=== PATIENT | male | born 1965 | race Caucasian/White ===

== ENCOUNTER → 2018-02-20 17:00 | Outpatient (CLI) | payer OTHER, SELFPAY ==
--- NOTE | 2018-02-20 17:07 | DI.MRI.S_ITS ---
PROCEDURE: MR LUMBAR SPINE WO CON INDICATIONS: LUMBAR SPINE RADICULOPATHY TECHNIQUE: Noncontrast sagittal T1 spin echo and T2 fast echo, coronal T2, sagittal STIR, axial T1 and T2 fast spin echo through the lumbar spine. COMPARISON: None. FINDINGS: Image quality: Excellent. Alignment and Curvature: No plain films are available for comparison, for numbering purposes. Thus, for the purposes of this examination, 5 lumbar type vertebral bodies will be presumed, as denoted on the montage panel. This should be confirmed and correlated with plain films, prior to any lumbar spinal intervention. There is mild diffuse leftward curvature of the midlumbar spine. There is mild grade 1 retrolisthesis of L1 on L2, L2 on L3, and L3 on L4. Bone Marrow: Marrow is of normal overall signal. No acute vertebral body compression fractures. There is moderate reactive signal within the endplates adjacent to the L1-L2 and L2-L3 intervertebral discs. Mild reactive signal within the endplates adjacent to the L3-L4 and L4-L5 intervertebral discs are Spinal Cord: Conus medullaris terminates at the L2 level. Visualized cord demonstrates normal signal and size. Paraspinous Soft Tissues: No paravertebral masses. T12-L1: Disc desiccation and diffuse disc bulge, with superimposed left paracentral protrusion. Bilateral facet hypertrophy. Mild canal stenosis. No foraminal stenosis. L1-L2: Disc desiccation and disc height loss, as well as a diffuse disc bulge. Bilateral facet hypertrophy. Mild canal stenosis. No foraminal stenosis. L2-L3: Disc desiccation and diffuse disc bulge. Bilateral facet hypertrophy. Epidural lipomatosis. Moderate to severe canal stenosis. Mild foraminal stenosis bilaterally. L3-L4: Disc desiccation and diffuse disc bulge with superimposed right paracentral disc extrusion, extending inferiorly within the right anterior epidural space. Bilateral facet and ligamentum flavum hypertrophy. Epidural lipomatosis. Severe canal stenosis. Moderate bilateral foraminal stenosis. Impingement upon the right L4 nerve root within the lateral recess. L4-L5: Disc height loss and desiccation, as well as diffuse disc bulge. Bilateral facet hypertrophy. Bilateral ligament hypertrophy. Epidural lipomatosis. There is severe canal stenosis. Moderate foraminal stenosis bilaterally. L5-S1: Disc desiccation and diffuse disc bulge. Bilateral facet hypertrophy. Mild canal stenosis. Severe left foraminal stenosis with mild flattening deformity of the left L5 nerve root within the neural foramen. Mild to moderate right foraminal stenosis. IMPRESSION: 1. Multilevel degenerative disc and facet disease, as well as epidural lipomatosis and ligamentum flavum hypertrophy. 2. Severe canal stenoses at L3-L4 and L4-L5. Moderate to severe canal stenosis at L2-L3. 3. Superimposed disc extrusion at L3-L4, causing right L4 nerve root impingement. 4. Severe left L5-S1 foraminal stenosis, associated with flattening deformity of the L5 nerve root within the neural foramen. Recommend correlation with clinical symptoms to ascertain relevance of this finding. 5. Plain films of the lumbar spine are recommended for numbering purposes, prior to any lumbar spinal intervention. Dictated by: Maruice Dixon M.D. on 02/21/2018 at 8:43 Approved by: Maurice Dixon M.D. on 02/21/2018 at 8:53
== END ==
PROVIDERS: PCP Family Medicine; Visit Provider Family Medicine
DX: M51.36 Other intervertebral disc degeneration, lumbar region (principal); M47.816 Spondylosis without myelopathy or radiculopathy, lumbar region; M48.061 Spinal stenosis, lumbar region without neurogenic claudication; M99.73 Connective tissue and disc stenosis of intervertebral foramina of lumbar region
CPT/HCPCS: 72148

== ENCOUNTER 2018-04-15 08:50 | Outpatient (CLI) | payer OTHER, SELFPAY ==
[2018-04-15] VITALS (9 sets, daily range): BP systolic 111–130; BP diastolic 65–89; PULSE 51–61; RESP 16–18; TEMP 35.9; O2SAT 96–100
--- NOTE | 2018-04-15 08:52 | DI.RAD.S_ITS ---
PROCEDURE: PAIN L INTERLAMINAR/CAUDAL INJ INDICATIONS: SPINAL STENOSIS FINDINGS: Fluoroscopic spot filming was performed to verify placement of spinal needles at the L4-L5 level(s), as labeled on the films. Appropriate location(s) of the needle tip(s) was confirmed by injection of iodinated contrast. IMPRESSION: Fluoroscopy for pain management. Dictated by: Dilip Agosto M.D. on 04/15/2018 at 16:28 Approved by: Dilip Agosto M.D. on 04/15/2018 at 16:28
--- NOTE | 2018-04-15 08:52 | DI.RAD.S_ITS ---
PROCEDURE: XR LUMBAR SPINE 2-3V INDICATIONS: Multilevel spinal stenosis left lower extremity radiculopath TECHNIQUE: 3 views of the lumbar spine were acquired. COMPARISON: None. FINDINGS: Bones: 5 [id number] vertebrae are present. Mild levoscoliosis. There is minimal retrolisthesis of L2 on L3 and L3 on L4. No vertebral body compression fractures. No suspicious bony lesions. There is degenerative disc disease, moderate to severe at L1-L2, moderate at L3-L4, and [id number] at L2-L3, L4-L5 and L5-S1. There is moderate facet arthropathy at L4-L5 and L5-S1. Soft tissues: Overlying bowel gas pattern is normal. No suspicious soft tissue calcifications. IMPRESSION: 1. Multilevel degenerative disc disease and facet arthropathy in lumbar spine. 2. Mild levoscoliosis. Dictated by: Dilip Agosto M.D. on 04/15/2018 at 14:08 Approved by: Dilip Agosto M.D. on 04/15/2018 at 14:12
--- NOTE | 2018-04-15 10:38 | P.PCN_ITS ---
Procedures Date/Time Date of procedure: 04/15/18 Time of procedure: 10:49 General Procedure description: PREOP DIAGNOSIS 1. CENTRAL AND FORAMINAL STENOSIS WITH LE SYMPTOMS, POST OP DIAGNOSIS 1. CENTRAL AND FORAMAINAL STENOSIS WITH LE SYMPTOMS, PROCEDURES 1.FLUOROSCOPICALLY GUIDED CONTRAST CONTROLLED TRANSFORAMINAL EPIDURAL STEROID INJECTION - Para Left L4/5 TLESI PHYSICIAN: Jenaro Sorto DO INDICATIONS: Adrian is referred by Dr. Macedo for treatment of Central and Foraminal Stenosis with left LE Symptoms FINDINGS Foraminal Nerve Root Compression secondary to disc disease and facet hypertrophy DESCRIPTION OF PROCEDURE Following denial of allergy and review of potential side effects and complications, including, but not necessarily limited to, infection, allergic reaction, local tissue breakdown, stroke, temporary or permanent nerve injury, paralysis, and possible , the patient indicated that the patient understood and agreed to proceed. An informed consent document was signed by the patient, witnessed by a nurse, and placed in the patient's chart. Additionally, other treatment options including medications, modalities, and physical therapy were reviewed with the patient. Per the patient request, IV conscious sedation was administered via 3mg of Versed to patient comfort. The patient's vital signs were monitored throughout the procedure by both the nurse and the physician without significant fluctuation. The patient remained conversant throughout the procedure. In the prone position following sterile prep and drape of the lumbar region, the L4/5 interlaminar space was identified fluoroscopically. The skin was anesthetized via a 25-gauge 1.5-inch needle with 1% lidocaine solution. At this point, a 25-gauge 3.5-inch spinal needle was atraumatically introduced and advanced under fluoroscopic guidance to the L4/5 epidural space. Loss of resistance technique was utilized to confirm placed. Depth was confirmed on lateral view. Following negative aspiration, injection of approximately 1.5 cc of Isovue 200 under live fluoroscopy in the AP view confirmed excellent flow along the nerve root, into the epidural space without vascular or intrathecal uptake observed Radiological data, including multiple fluoroscopic views of the lumbosacral spine, reveal a spinal needle at the right L5/S1 posterior neuroforamen. Subsequent views show flow of contrast material flowing superiorly and inferiorly along the nerve root confirming epidural flow. Subsequently, a test dose of 1.5 cc of 1% lidocaine solution was administered and patient was observed for two minutes for signs or symptoms of complications , including abdominal pain, shortness of breath, bilateral upper or lower extremity weakness, nausea and vomiting, prior to steroid injection. At this point, a total of 3 cc or 20 mg of dexamethasone and 80mg Depo Medrol was injected without incident. The patient was then transferred to the recovery area where they were observed for an appropriate time after the injection. The patient reported a VAS score of 7 prior to the procedure and a post-procedure VAS of 0. Total Fluoroscopy Time: 20.9 seconds Total Conscious Sedation Time: 24min POST OP INSTRUCTIONS The patient was provided a Pain Log to continue to record their response to the target-specific procedure prior to follow-up visit with their referring physician. Additionally, specific post-injection care instructions and a contact number to our office were provided if concerns arise regarding possible complications associated with the procedure are suspected. Jenaro Sorto DO Complications: none
[2018-04-15] MEDS: MIDAZOLAM 5 MG/5 ML VIAL IV (10:43)
[2018-04-15] MEDS: BUPIVACAINE 0.25% (PF) 30 ML VIAL INJ (10:55)
[2018-04-15] MEDS: methylPREDNISolone acetate 80 MG/ML VIAL INJ (10:55)
[2018-04-15] MEDS: IOPAMIDOL 15 ML VIAL 3 ML INJ (10:55)
[2018-04-15] MEDS: DEXAMETHASONE 10 MG/ML VIAL 20 MG INJ (10:55)
== END 2018-04-15 12:05 ==
PROVIDERS: PCP Family Medicine; Visit Provider Physical Medicine & Rehabilitation
DX: M48.061 Spinal stenosis, lumbar region without neurogenic claudication (principal); M47.26 Other spondylosis with radiculopathy, lumbar region; M51.36 Other intervertebral disc degeneration, lumbar region
CPT/HCPCS: 62323; 72100; 99152; J1040; J1100; J2250

== ENCOUNTER 2018-06-04 08:57 | Outpatient (CLI) | payer OTHER, SELFPAY ==
[2018-06-04] VITALS (10 sets, daily range): BP systolic 109–134; BP diastolic 76–97; PULSE 54–70; RESP 15–20; TEMP 35.8; O2SAT 96–100
--- NOTE | 2018-06-04 08:59 | DI.RAD.S_ITS ---
PROCEDURE: PAIN L/S TRANSFORAMINAL INJECT INDICATIONS: HNP with left lower extremity symptoms FINDINGS: Fluoroscopic spot filming was performed to verify placement of spinal needles at the left L4-L3-L4 level. Appropriate location(s) of the needle tip(s) was confirmed by injection of iodinated contrast. IMPRESSION: Successful needle tip localization of the left 4 L3-L4 transforaminal epidural steroid injection. Dictated by: Estrada Cline M.D. on 06/06/2018 at 12:10 Approved by: Estrada Cline M.D. on 06/06/2018 at 12:12
[2018-06-04] MEDS: MIDAZOLAM 5 MG/5 ML VIAL IV (10:10)
[2018-06-04] MEDS: BUPIVACAINE 0.25% (PF) VIAL 2 ML INJ (10:17)
[2018-06-04] MEDS: IOPAMIDOL 15 ML VIAL 3 ML INJ (10:17)
[2018-06-04] MEDS: DEXAMETHASONE 10 MG/ML VIAL 20 MG INJ (10:17)
[2018-06-04] MEDS: methylPREDNISolone acetate 80 MG/ML VIAL INJ (10:17)
--- NOTE | 2018-06-04 10:32 | P.PCN_ITS ---
Procedures Date/Time Date of procedure: 06/04/18 Time of procedure: 10:31 General Procedure description: PROVIDER: Jenaro Sorto DO Operative Note PREOP DIAGNOSIS 1. FORAMINAL STENOSIS WITH LE SYMPTOMS, POST OP DIAGNOSIS 1. FORAMINAL STENOSIS WITH LE SYMPTOMS, PROCEDURES 1. FLUOROSCOPICALLY GUIDED CONTRAST CONTROLLED TRANSFORAMINAL EPIDURAL STEROID INJECTION - LEFT L3/4 TFESI SURGEON: Jenaro Sorto, INDICATIONS Adrian is referred by Dr. Macedo for treatment of Foraminal Stenosis with left LE Symptoms FINDINGS Foraminal Nerve Root Compression secondary to disc disease and facet hypertrophy DESCRIPTION OF PROCEDURE Following denial of allergy and review of potential side effects and complications, including, but not necessarily limited to, infection, allergic reaction, local tissue breakdown, stroke, temporary or permanent nerve injury, paralysis, and possible , the patient indicated that the patient understood and agreed to proceed. An informed consent document was signed by the patient, witnessed by a nurse, and placed in the patient's chart. Additionally, other treatment options including medications, modalities, and physical therapy were reviewed with the patient. After review of previous anaesthesic history and IV conscious sedation the patient was deemed safe to proceed with todays procedure with IV conscious sedation as ASA class II designation. Safety time-out was performed to confirm patient ID, procedure to be performed and site of procedure. IV sedation was accomplished with a combination of 3mg was administered by the RN after DO order , titrated to patient comfort during the course of the procedure while the patient remained responsive to all verbal commands In the prone position following sterile prep and drape of the lumbar region, the left L3/4 posterior neuroforamen was identified fluoroscopically. The skin was anesthetized via a 25-gauge 1.5-inch needle with 1% lidocaine solution. At this point, a 25-gauge 3.5-inch spinal needle was atraumatically introduced and advanced under fluoroscopic guidance through the posterior left L3/4 neuroforamen to approximately the anterior aspect of the canal. Depth was confirmed on lateral view. Following negative aspiration, injection of approximately 1.5 cc of Isovue 200 under live fluoroscopy in the AP view confirmed excellent flow along the nerve root, into the epidural space without vascular or intrathecal uptake observed Radiological data, including multiple fluoroscopic views of the lumbosacral spine, reveal a spinal needle at the left L3/4 posterior neuroforamen. Subsequent views show flow of contrast material flowing superiorly and inferiorly along the nerve root confirming epidural flow. Subsequently, a test dose of 1.5 cc of 1% lidocaine solution was administered and patient was observed for two minutes for signs or symptoms of complications , including abdominal pain, shortness of breath, bilateral upper or lower extremity weakness, nausea and vomiting, prior to steroid injection. At this point, a total of 3 cc or 20 mg of dexamethasone and 80mg Depo medrol was injected without incident. The patient tolerated the procedure well without signs or symptoms of complications prior to transfer to the recovery area continued monitoring without incident. The patient was then transferred to the recovery area where they were observed for an appropriate time after the injection. The patient reported a VAS score of 7 prior to the procedure and a post-procedure VAS of 0. Total Fluoroscopy Time: 24.2 seconds Total Conscious Sedation Time: 24min POST OP INSTRUCTIONS The patient was provided a Pain Log to continue to record their response to the target-specific procedure prior to follow-up visit with their referring physician. Additionally, specific post-injection care instructions and a contact number to our office were provided if concerns arise regarding possible complications associated with the procedure are suspected. Jenaro Sorto, Complications: none
== END 2018-06-04 10:52 ==
LOC: RAD 08:58
PROVIDERS: PCP Family Medicine; Visit Provider Physical Medicine & Rehabilitation
DX: M51.26 Other intervertebral disc displacement, lumbar region (principal); M48.061 Spinal stenosis, lumbar region without neurogenic claudication
CPT/HCPCS: 64483; 99152; J1040; J1100; J2250

== ENCOUNTER 2018-07-29 08:09 | Outpatient (CLI) | payer OTHER, SELFPAY ==
[2018-07-29] VITALS (8 sets, daily range): BP systolic 113–137; BP diastolic 63–85; PULSE 58–67; RESP 14–18; TEMP 36.1; O2SAT 95–98
--- NOTE | 2018-07-29 08:10 | DI.RAD.S_ITS ---
PROCEDURE: PAIN L/S TRANSFORAMINAL INJECT INDICATIONS: HNP with left lower extremity radicular FINDINGS: Fluoroscopic spot filming was performed to verify placement of spinal needles at the left L4-5 neural foramen margin level, as labeled on the films. Appropriate location(s) of the needle tip(s) was confirmed by injection of iodinated contrast. IMPRESSION: Successful left L4-5 neural foraminal needle tip localization for epidural steroid injection. Dictated by: Estrada Cline M.D. on 07/29/2018 at 12:54 Approved by: Estrada Cline M.D. on 07/29/2018 at 12:55
--- NOTE | 2018-07-29 08:40 | P.PCN_ITS ---
Procedures Date/Time Date of procedure: 07/29/18 Time of procedure: 08:39 General Procedure description: PREOP DIAGNOSIS 1. FORMAINAL STENOSIS WITH LE SYMPTOMS POST OP DIAGNOSIS 1. FORMAINAL STENOSIS WITH LE SYMPTOMS PROCEDURES 1. FLUOROSCOPICALLY GUIDED CONTRAST CONTROLLED TRANSFORAMINAL EPIDURAL STEROID INJECTION - LEFT L4/5 PHYSICIAN: Jenaro Sorto DO INDICATIONS: Adrian is referred by Dr. Macedo for treatment of Foraminal Stenosis with Left LE Symptoms FINDINGS Foraminal Nerve Root Compression secondary to disc disease and facet hypertrophy DESCRIPTION OF PROCEDURE: Following denial of allergy and review of potential side effects and complications, including, but not necessarily limited to, infection, allergic reaction, local tissue breakdown, stroke, temporary or permanent nerve injury, paralysis, and possible , the patient indicated that the patient understood and agreed to proceed. An informed consent document was signed by the patient, witnessed by a nurse, and placed in the patient's chart. Additionally, other treatment options including medications, modalities, and physical therapy were reviewed with the patient. After review of previous anaesthesic history and IV conscious sedation the patient was deemed safe to proceed with todays procedure with IV conscious sedation as ASA class II designation. Safety time-out was performed to confirm patient ID, procedure to be performed and site of procedure. IV sedation was accomplished with a combination of 5mg of Versed administered by the RN after DO order, titrated to patient comfort during the course of the procedure while the patient remained responsive to all verbal commands In the prone position following sterile prep and drape of the lumbar region, the left L4/5 posterior neuroforamen was identified fluoroscopically. The skin was anesthetized via a 25-gauge 1.5-inch needle with 1% lidocaine solution. At this point, a 25-gauge 3.5-inch spinal needle was atraumatically introduced and advanced under fluoroscopic guidance through the posterior left L4/5 neuroforamen to approximately the anterior aspect of the canal. Depth was confirmed on lateral view. Following negative aspiration, injection of approximately 1.5 cc of Isovue 200 under live fluoroscopy in the AP view confirmed excellent flow along the nerve root, into the epidural space without vascular or intrathecal uptake observed Radiological data, including multiple fluoroscopic views of the lumbosacral spine, reveal a spinal needle at the left L4/5 posterior neuroforamen. Subsequent views show flow of contrast material flowing superiorly and inferiorly along the nerve root confirming epidural flow. Subsequently, a test dose of 1.5 cc of 1% lidocaine solution was administered and patient was observed for two minutes for signs or symptoms of complications , including abdominal pain, shortness of breath, bilateral upper or lower extremity weakness, nausea and vomiting, prior to steroid injection. At this point, a total of 3 cc or 20 mg of dexamethasone and 80mg Depo Medrol was injected without incident. The procedure tolerated the procedure well without signs or symptoms of complications prior to transfer to the recovery area continued monitoring without incident. The patient was then transferred to the recovery area where they were observed for an appropriate time after the injection. The patient reported a VAS score of 7 prior to the procedure and a post- procedure VAS of 0. Total Fluoroscopy Time: 20.9 seconds Total Conscious Sedation Time: 24min POST OP INSTRUCTIONS The patient was provided a Pain Log to continue to record their response to the target-specific procedure prior to follow-up visit with their referring physician. Additionally, specific post-injection care instructions and a contact number to our office were provided if concerns arise regarding possible complications associated with the procedure are suspected. Jenaro Sorto DO Complications: none
[2018-07-29] MEDS: MIDAZOLAM 5 MG/5 ML VIAL IV (08:55)
[2018-07-29] MEDS: BUPIVACAINE 0.25% (PF) VIAL 2 ML INJ (08:57)
[2018-07-29] MEDS: IOPAMIDOL 15 ML VIAL 3 ML INJ (08:57)
[2018-07-29] MEDS: methylPREDNISolone acetate 80 MG/ML VIAL INJ (08:58)
[2018-07-29] MEDS: DEXAMETHASONE 10 MG/ML VIAL 20 MG INJ (08:59)
--- NOTE | 2018-07-29 09:05 | PC.NURSE ---
procedure finished, pt was awake through it, able to get up off table and into W/C with minimal assist. VSS transporting pt to pre procedure area. handoff to Kelli TSANG
== END 2018-07-29 09:34 | disposition home or self-care (01) ==
LOC: RAD 08:09
PROVIDERS: PCP Family Medicine; Visit Provider Physical Medicine & Rehabilitation
DX: M48.061 Spinal stenosis, lumbar region without neurogenic claudication (principal); M51.16 Intervertebral disc disorders with radiculopathy, lumbar region
CPT/HCPCS: 64483; 99152; J1040; J1100; J2250

== ENCOUNTER 2018-10-28 08:52 | Outpatient (CLI) | payer OTHER, SELFPAY ==
[2018-10-28] VITALS (9 sets, daily range): BP systolic 125–142; BP diastolic 83–95; PULSE 60–72; RESP 16–18; TEMP 35.9; O2SAT 95–98
--- NOTE | 2018-10-28 08:55 | DI.RAD.S_ITS ---
PROCEDURE: PAIN L/S TRANSFORAMINAL INJECT INDICATIONS: INTERVERTEBRAL DISC DISPLACEMENT FINDINGS: Fluoroscopic spot filming was performed to verify placement of spinal needles at the L3-L4 level(s), as labeled on the films. Appropriate location(s) of the needle tip(s) was confirmed by injection of iodinated contrast. IMPRESSION: Fluoroscopy for pain management. Dictated by: Dilip Agosto M.D. on 10/28/2018 at 10:40 Approved by: Dilip Agosto M.D. on 10/28/2018 at 10:41
[2018-10-28] MEDS: MIDAZOLAM 5 MG/5 ML VIAL IV (09:40)
[2018-10-28] MEDS: methylPREDNISolone acetate 80 MG/ML VIAL INJ (09:45)
[2018-10-28] MEDS: BUPIVACAINE 0.25% (PF) VIAL 2 ML INJ (09:45)
[2018-10-28] MEDS: IOPAMIDOL 15 ML VIAL 3 ML INJ (09:45)
[2018-10-28] MEDS: DEXAMETHASONE 10 MG/ML VIAL 20 MG INJ (09:45)
--- NOTE | 2018-10-28 09:48 | PC.NURSE ---
ASSISTING PT OFF TABLE AND TRANSPORTING TO POST PROC AREA IN STABLE CONDITION
--- NOTE | 2018-10-28 09:55 | P.PCN_ITS ---
Procedures Date/Time Date of procedure: 10/28/18 Time of procedure: 09:53 General Procedure description: PROVIDER: Jenaro Sorto DO Operative Note PREOP DIAGNOSIS 1. FORAMINAL STENOSIS WITH LE SYMPTOMS, POST OP DIAGNOSIS 1. FORAMINAL STENOSIS WITH LE SYMPTOMS, PROCEDURES 1. FLUOROSCOPICALLY GUIDED CONTRAST CONTROLLED TRANSFORAMINAL EPIDURAL STEROID INJECTION - LEFT L3/4 TFESI SURGEON: Jenaro Sorto, INDICATIONS Adrian is referred by Dr. Macedo for treatment of Foraminal Stenosis with left LE Symptoms FINDINGS Foraminal Nerve Root Compression secondary to disc disease and facet hypertrophy DESCRIPTION OF PROCEDURE Following denial of allergy and review of potential side effects and complications, including, but not necessarily limited to, infection, allergic reaction, local tissue breakdown, stroke, temporary or permanent nerve injury, paralysis, and possible , the patient indicated that the patient understood and agreed to proceed. An informed consent document was signed by the patient, witnessed by a nurse, and placed in the patient's chart. Additionally, other treatment options including medications, modalities, and physical therapy were reviewed with the patient. After review of previous anaesthesic history and IV conscious sedation the patient was deemed safe to proceed with todays procedure with IV conscious sedation as ASA class II designation. Safety time-out was performed to confirm patient ID, procedure to be performed and site of procedure. IV sedation was accomplished with a combination of 3mg Versed was administered by the RN after DO order, titrated to patient comfort during the course of the procedure while the patient remained responsive to all verbal commands In the prone position following sterile prep and drape of the lumbar region, the left L3/4 posterior neuroforamen was identified fluoroscopically. The skin was anesthetized via a 25-gauge 1.5-inch needle with 1% lidocaine solution. At this point, a 25-gauge 3.5-inch spinal needle was atraumatically introduced and advanced under fluoroscopic guidance through the posterior left L3/4 neuroforamen to approximately the anterior aspect of the canal. Depth was confirmed on lateral view. Following negative aspiration, injection of approximately 1.5 cc of Isovue 200 under live fluoroscopy in the AP view confirmed excellent flow along the nerve root, into the epidural space without vascular or intrathecal uptake observed Radiological data, including multiple fluoroscopic views of the lumbosacral spine, reveal a spinal needle at the left L3/4 posterior neuroforamen. Subsequent views show flow of contrast material flowing superiorly and inferiorly along the nerve root confirming epidural flow. Subsequently, a test dose of 1.5 cc of 1% lidocaine solution was administered and patient was observed for two minutes for signs or symptoms of complications , including abdominal pain, shortness of breath, bilateral upper or lower extremity weakness, nausea and vomiting, prior to steroid injection. At this point, a total of 3cc or 20mg of dexamethasone and 80mg Depo medrol was injected without incident. The patient tolerated the procedure well without signs or symptoms of complications prior to transfer to the recovery area continued monitoring without incident. The patient was then transferred to the recovery area where they were observed for an appropriate time after the injection. The patient reported a VAS score of 7 prior to the procedure and a post-procedure VAS of 0. Total Fluoroscopy Time: 24.2 seconds Total Conscious Sedation Time: 24min POST OP INSTRUCTIONS The patient was provided a Pain Log to continue to record their response to the target-specific procedure prior to follow-up visit with their referring physician. Additionally, specific post-injection care instructions and a contact number to our office were provided if concerns arise regarding possible complications associated with the procedure are suspected. Jenaro Sorto, Complications: none
--- NOTE | 2018-10-28 10:00 | PC.NURSE ---
Pt returned from procedure room via wheelchair, able to move from w/c to chair without problems, resumed monitoring from Kelli TSANG.
--- NOTE | 2018-10-29 16:30 | PC.NURSE ---
FOLLOW UP CALL MADE. PT STATES HE FEELS FINE. STATES THERE IS JUST A LITTLE PAIN AT THIS TIME. DENIES QUESTIONS OR CONCERNS. I REMINDED HIM TO CONTINUE TO DOCUMENT PAIN ON GREEN SHEET AND THAT IF QUESTIONS CAME UP, HE HAS OUR NUMBER ON SAME SHEET. HE VERBALIZED UNDERSTANDING.
== END 2018-10-28 10:18 ==
LOC: RAD 08:53
PROVIDERS: PCP Family Medicine; Visit Provider Physical Medicine & Rehabilitation
DX: M48.061 Spinal stenosis, lumbar region without neurogenic claudication (principal); M51.16 Intervertebral disc disorders with radiculopathy, lumbar region
CPT/HCPCS: 64483; 99152; J1040; J1100; J2250

== ENCOUNTER 2019-09-10 06:58 | Outpatient (CLI) | payer OTHER, SELFPAY ==
[2019-09-10] VITALS (8 sets, daily range): BP systolic 105–131; BP diastolic 63–95; PULSE 61–71; RESP 14–16; TEMP 36.2; O2SAT 93–96
--- NOTE | 2019-09-10 07:00 | DI.RAD.S_ITS ---
PROCEDURE: PAIN L/S TRANSFORAMINAL INJECT INDICATIONS: SPINAL STENOSIS FINDINGS: Fluoroscopic spot filming was performed to verify placement of spinal needles at the L3-L4 level(s), as labeled on the films. Appropriate location(s) of the needle tip(s) was confirmed by injection of iodinated contrast. IMPRESSION: Fluoroscopy for pain management. Dictated by: Dilip Agosto M.D. on 09/10/2019 at 8:53 Approved by: Dilip Agosto M.D. on 09/10/2019 at 8:54
[2019-09-10] MEDS: MIDAZOLAM 5 MG/5 ML VIAL IV (08:07)
[2019-09-10] MEDS: fentaNYL 100 MCG/2 ML INJ 50 MCG IV (08:07)
[2019-09-10] MEDS: BUPIVACAINE 0.25% (PF) VIAL 2 ML INJ (08:19)
[2019-09-10] MEDS: IOPAMIDOL 15 ML VIAL 3 ML INJ (08:19)
[2019-09-10] MEDS: DEXAMETHASONE 10 MG/ML VIAL 20 MG INJ (08:19)
[2019-09-10] MEDS: BETAMETHASONE 30 MG/5 ML MDV 6 MG INJ (08:20)
--- NOTE | 2019-09-10 08:24 | P.PCN_ITS ---
Procedures Date/Time Date of procedure: 09/10/19 Time of procedure: 08:24 General Procedure description: PROVIDER: Jenaro Sorto DO Operative Note PREOP DIAGNOSIS 1. FORAMINAL STENOSIS WITH LE SYMPTOMS, POST OP DIAGNOSIS 1. FORAMINAL STENOSIS WITH LE SYMPTOMS, PROCEDURES 1. FLUOROSCOPICALLY GUIDED CONTRAST CONTROLLED TRANSFORAMINAL EPIDURAL STEROID INJECTION - LEFT L3/4 TFESI SURGEON: Jenaro Sorto, INDICATIONS Adrian is referred by Dr. Saldana for treatment of Foraminal Stenosis with left LE Symptoms FINDINGS Foraminal Nerve Root Compression secondary to disc disease and facet hypertrophy DESCRIPTION OF PROCEDURE Following review of allergy and review of potential side effects and complications, including, but not necessarily limited to, infection, allergic reaction, local tissue breakdown, stroke, temporary or permanent nerve injury, paralysis, and possible , the patient indicated that the patient understood and agreed to proceed. An informed consent document was signed by the patient, witnessed by a nurse, and placed in the patient's chart. Additionally, other treatment options including medications, modalities, and physical therapy were reviewed with the patient. After review of previous anaesthesic history and IV conscious sedation the patient was deemed safe to proceed with todays procedure with IV conscious sedation as ASA class II designation. Safety time-out was performed to confirm patient ID, procedure to be performed and site of procedure. IV sedation was accomplished with a combination of 5 of Versed and 50mcg of Fentanyl was administered by the RN after DO order, titrated to patient comfort during the course of the procedure while the patient remained responsive to all verbal commands In the prone position following sterile prep and drape of the lumbar region, the left L3/4 posterior neuroforamen was identified fluoroscopically. The skin was anesthetized via a 25-gauge 1.5-inch needle with 1% lidocaine solution. At this point, a 25-gauge 3.5-inch spinal needle was atraumatically introduced and advanced under fluoroscopic guidance through the posterior left L3/4 neuroforamen to approximately the anterior aspect of the canal. Depth was confirmed on lateral view. Following negative aspiration, injection of approximately 1.5 cc of Isovue 200 under live fluoroscopy in the AP view confirmed excellent flow along the nerve root, into the epidural space without v ascular or intrathecal uptake observed Radiological data, including multiple fluoroscopic views of the lumbosacral spine, reveal a spinal needle at the left L3/4 posterior neuroforamen. Subsequent views show flow of contrast material flowing superiorly and inferiorly along the nerve root confirming epidural flow. Subsequently, a test dose of 1.5 cc of 1% lidocaine solution was administered and patient was observed for two minutes for signs or symptoms of complications, including abdominal pain, shortness of breath, bilateral upper or lower extremity weakness, nausea and vomiting, prior to steroid injection. At this point, a total of 3cc or 20mg of dexamethasone and 6mg betamethasone was injected without incident. The patient tolerated the procedure well without signs or symptoms of complications prior to transfer to the recovery area continued monitoring without incident. The patient was then transferred to the recovery area where they were observed for an appropriate time after the injection. The patient reported a VAS score of 7 prior to the procedure and a post-procedure VAS of 0. Total Fluoroscopy Time: 24.2 seconds Total Conscious Sedation Time: 24min POST OP INSTRUCTIONS The patient was provided a Pain Log to continue to record their response to the target-specific procedure prior to follow-up visit with their referring physician. Additionally, specific post-injection care instructions and a contact number to our office were provided if concerns arise regarding possible complications associated with the procedure are suspected. Jenaro Sorto, Complications: none
--- NOTE | 2019-09-10 08:33 | PC.NURSE ---
ACCEPTED CARE OF PT IN POST PROC AREA IN STABLE CONDITION.
--- NOTE | 2019-09-10 09:10 | PC.NURSE ---
Post procedure transfer note: Time out at 0805. Patient medicated per providers orders. Tolerated procedure with mild discomfort. VSS, and O2 Sat WNL throughout. Able to sit up and transfer to / without dificulties. handoff report given to Kenrick Lam RN. patient transfered from / to recliner independently. Pain level 0/10
== END 2019-09-10 08:52 | disposition home or self-care (01) ==
LOC: RAD 06:58
PROVIDERS: PCP Student in an Organized Health Care Education/Training Program; Visit Provider Physical Medicine & Rehabilitation
DX: M48.062 Spinal stenosis, lumbar region with neurogenic claudication (principal); M51.16 Intervertebral disc disorders with radiculopathy, lumbar region
CPT/HCPCS: 64483; 99152; J0702; J1100; J2250; J3010

== ENCOUNTER → 2019-10-26 17:07 | Outpatient (CLI) | payer OTHER, SELFPAY ==
--- NOTE | 2019-10-26 17:09 | DI.MRI.S_ITS ---
PROCEDURE: MR LUMBAR SPINE WO CON INDICATIONS: increase lower back pain TECHNIQUE: Noncontrast sagittal T1 spin echo and T2 fast echo, sagittal STIR, axial T1 and T2 fast spin echo through the lumbar spine. In cases with scoliosis, additional coronal T2 fast spin echo may be performed. COMPARISON: [facility], CR, XR LUMBAR SPINE MIN 4V, 10/26/2019, 17:29. [facility], MR, MR LUMBAR SPINE WO CON, 02/20/2018, 17:11. FINDINGS: Image quality: Excellent. Alignment and Curvature: There is there is trace L1-L2, L2-L3 and L3 on L4 retrolisthesis. Bone Marrow: Marrow is of normal overall signal. No acute vertebral body compression fractures. Spinal Cord: Conus medullaris terminates at the L2 level. Visualized cord demonstrates normal signal and size. Paraspinous Soft Tissues: No paravertebral masses. T12-L1: Loss of disc signal. Minimal, diffuse disc bulge. Small central disc protrusion. Mild narrowing of the central canal. No neural foraminal narrowing. No neural compression. L1-L2: Loss of disc signal and height. Moderate, diffuse disc bulge. Mild bilateral facet hypertrophy. Moderate narrowing of the central canal. Mild bilateral neural foraminal narrowing. No neural compression. L2-L3: Loss of disc signal and height. Moderate, diffuse disc bulge Mild to moderate facet hypertrophy. Severe narrowing of the central canal with compression of the nerve roots of the cauda equina. Moderate bilateral neural foraminal narrowing. L3-L4: Loss of disc signal and height. Mild, diffuse disc bulge. Moderate bilateral facet hypertrophy. Large right central disc extrusion which extends inferiorly along the posterior margin of the L4 vertebral body.Severe narrowing of the central canal with compression of the nerve roots of the cauda equina. Moderate bilateral neural foraminal narrowing. L4-L5: Loss of disc signal. Moderate, diffuse disc bulge. Severe facet hypertrophy. Severe narrowing of the central canal with compression of the nerve roots of the cauda equina. Severe bilateral neural foraminal narrowing with compression of the exiting L4 nerve roots. L5-S1: Loss of disc signal. Mild, diffuse disc bulge. Moderate bilateral facet hypertrophy. Mild narrowing of the central canal. Severe bilateral neural foraminal narrowing with compression of the exiting L5 nerve roots. IMPRESSION: 1. Multilevel degenerative disc disease. 2. Multilevel facet arthropathy. 3. Severe L2-L3, L3-L4 and L4-L5 central canal narrowing with compression of the nerve roots of the cauda equina. 4. Severe bilateral L4-L5 and L5-S1 neural foraminal narrowing with compression of the exiting bilateral L4 nerve roots and exiting bilateral L5 nerve roots. 5. Large right central L3-L4 disc extrusion. Dictated by: Kathryn Goldstein MD, PhD on 10/27/2019 at 12:13 Approved by: Kathryn Goldstein MD, PhD on 10/27/2019 at 12:32
--- NOTE | 2019-10-26 17:10 | DI.RAD.S_ITS ---
PROCEDURE: XR LUMBAR SPINE MIN 4V INDICATIONS: Progressive low back pain left lower extremity symptoms TECHNIQUE: 5 views of the lumbar spine were acquired. COMPARISON: [facility], CR, XR LUMBAR SPINE 2-3V, 04/15/2018, 9:13. FINDINGS: Bones: No fracture or focal osseous destruction. Multilevel degenerative endplate sclerosis and spurring. Diffuse facet arthropathy. Grade 1 retrolisthesis L2 on L3 and L3 on L4. Levocurvature centered at L3. Soft tissues: Overlying bowel gas pattern is normal. No suspicious soft tissue calcifications. Oblique images: No pars defects. IMPRESSION: Diffuse lumbar spondylosis, with levocurvature grossly unchanged since 04/15/18 Facet arthropathy Dictated by: Kavin Fisher M.D. on 10/27/2019 at 14:13 Approved by: Kavin Fisher M.D. on 10/27/2019 at 14:15
== END ==
PROVIDERS: Family Provider Student in an Organized Health Care Education/Training Program; PCP Student in an Organized Health Care Education/Training Program; Visit Provider Physical Medicine & Rehabilitation
DX: M54.5 Low back pain (principal); M51.16 Intervertebral disc disorders with radiculopathy, lumbar region; M51.17 Intervertebral disc disorders with radiculopathy, lumbosacral region; M47.26 Other spondylosis with radiculopathy, lumbar region; M47.27 Other spondylosis with radiculopathy, lumbosacral region; M48.062 Spinal stenosis, lumbar region with neurogenic claudication; M48.07 Spinal stenosis, lumbosacral region
CPT/HCPCS: 72110; 72148

== ENCOUNTER → 2020-08-13 08:11 | Outpatient (CLI) | payer OTHER, SELFPAY ==
[2020-08-15 07:56] LABS: COVID19 Sendout Not Detected (Not Detect)
== END ==
PROVIDERS: Family Provider Student in an Organized Health Care Education/Training Program; PCP Student in an Organized Health Care Education/Training Program; Visit Provider Physician Assistant
DX: Z11.59 Encounter for screening for other viral diseases (principal)
CPT/HCPCS: 87635

== ENCOUNTER 2020-08-16 08:09 | Outpatient (CLI) | payer OTHER, SELFPAY ==
[2020-08-16] VITALS (11 sets, daily range): BP systolic 121–143; BP diastolic 67–89; PULSE 60–72; RESP 12–23; O2SAT 93–98
--- NOTE | 2020-08-16 08:12 | DI.RAD.S_ITS ---
PROCEDURE: PAIN L/SI FACET INJ/BLK 1STL INDICATIONS: SPONDYLOSIS COMPARISON: [facility], CR, XR LUMBAR SPINE MIN 4V, 10/26/2019, 17:29. FINDINGS: Fluoroscopic spot filming was performed to verify placement of spinal needles at the L2-3, L3-4, and L4-5 levels on the left, as labeled on the films. Appropriate location(s) of the needle tip(s) was confirmed by injection of iodinated contrast. IMPRESSION: Intraprocedural examination within normal limits. Dictated by: Aniket Duval M.D. on 08/16/2020 at 9:31 Approved by: Aniket Duval M.D. on 08/16/2020 at 9:32
[2020-08-16] MEDS: fentaNYL 100 MCG/2 ML INJ 50 MCG IV (08:49)
[2020-08-16] MEDS: MIDAZOLAM 5 MG/5 ML VIAL IV (08:57)
[2020-08-16] MEDS: BETAMETHASONE 30 MG/5 ML MDV 12 MG INJ (08:57)
[2020-08-16] MEDS: LIDOCAINE 1% 20 ML 10 ML INJ (08:58)
[2020-08-16] MEDS: BUPIVACAINE 0.5% (PF) VIAL 5 ML INJ (08:58)
[2020-08-16] MEDS: IOPAMIDOL 15 ML VIAL 3 ML INJ (08:58)
--- NOTE | 2020-08-16 09:05 | P.PCN_ITS ---
Date/Time/Diagnoses Date of procedure: 08/16/20 Time of procedure: 09:06 Pre-procedure diagnosis: 1. FACET ARTHROPATHY, 2. AXIAL LBP, 3. MULTILEVEL DDD Post-procedure diagnosis: same Procedure Notes Procedure: 1. FLUOROSCOPICALLY GUIDED CONTRAST CONTROLLED FACET JOINT INJECTIONS LEFT L2/3, L3/4, L4/5 Indications: Adrian is referred by Dr. Saldana for treatment of Axial LBP Physician: Jenaro Sorto Total Fluoroscopy time (seconds): 6 Total sedation minutes: 14 Complications: none Procedure in detail & Post-procedure care: FINDINGS Multilevel Facet Arthropathy with Clinically significant axial LBP DESCRIPTION OF PROCEDURE Fluoroscopically guided, contrast-controlled left L2/3, L3/4, L4/5 facet joint injections. Following review of allergy and review of potential side effects and complications, including, but not necessarily limited to, infection, allergic reaction, local tissue breakdown, stroke, temporary or permanent nerve injury, paralysis, and possible , the patient indicated that the patient understood and agreed to proceed. An informed consent document was signed by the patient, witnessed by a nurse, and placed in the patient's chart. Additionally, other treatment options including medications, modalities, and physical therapy were reviewed with the patient. After review of previous anaesthesic history and IV conscious sedation the patient was deemed safe to proceed with today?s procedure with IV conscious sedation as ASA class II designation. Safety time-out was performed to confirm patient ID, procedure to be performed and site of procedure. IV sedation was accomplished with a combination of 4mg of Versed and 50mcg of Fentanyl administered by the RN after DO order, titrated to patient comfort during the course of the procedure while the patient remained responsive to all verbal commands. In the prone position, following sterile prep and drape of the lumbar region, the posterior aspect of the left L2/3, L3/4, L4/5 facet joints were identified fluoroscopically. The skin was anesthetized via a 25-gauge 1.5-inch needle with 1% lidocaine solution into the corresponding facet joints. At this point, a 22- gauge 3.5-inch spinal needle was atraumatically introduced and advanced under fluoroscopic guidance into the corresponding facet joints. Following negative aspiration, injections of approximately 0.2cc of Isovue 200 confirmed interarticular placement without vascular uptake. Radiological data, including multiple fluoroscopic views of the lumbosacral spine, reveal a spinal needle at the left L2/3, L3/4, L4/5 facet joints. Subsequent views show flow of contrast material both superiorly and inferiorly within the joint space without vascular or intrathecal uptake. At this point, a total of 0.5cc including a mixture of 0.25cc Marcaine and 0.25cc betamethasone was injected without complication into each of the corresponding facet joints. The patient tolerated the procedure well without signs or symptoms of complications prior to transfer to the recovery area for further monitoring. The patient was then transferred to the recovery area where they were observed for an appropriate period of time after the injection. The patient reported a VAS score of 7 prior to the procedure and a post-procedure VAS of 0. POSTOP INSTRUCTIONS The patient was provided a Pain Log to continue to record their response to the target-specific procedure prior to follow-up visit with their referring physician. Additionally, specific post-injection care instructions and a contact number to our office were provided if concerns arise regarding possible complications associated with the procedure are suspected.
== END 2020-08-16 09:30 | disposition home or self-care (01) ==
LOC: RAD 08:11
PROVIDERS: Family Provider Student in an Organized Health Care Education/Training Program; PCP Student in an Organized Health Care Education/Training Program; Referring Provider Physical Medicine & Rehabilitation; Visit Provider Physical Medicine & Rehabilitation
DX: M47.816 Spondylosis without myelopathy or radiculopathy, lumbar region (principal); M54.5 Low back pain; M51.36 Other intervertebral disc degeneration, lumbar region
CPT/HCPCS: 64493; 64494; 64495; 99152; J0702; J2250; J3010

== ENCOUNTER → 2020-11-01 12:18 | Outpatient (CLI) | payer OTHER, SELFPAY ==
[2020-11-01 14:15] LABS: COVID19 -Nasal RAPID Negative (Negative)
== END ==
PROVIDERS: Family Provider Student in an Organized Health Care Education/Training Program; PCP Student in an Organized Health Care Education/Training Program; Visit Provider Physical Medicine & Rehabilitation
DX: Z20.822 Contact with and (suspected) exposure to COVID-19 (principal)
CPT/HCPCS: 87635; C9803

== ENCOUNTER 2020-11-03 10:03 | Outpatient (CLI) | payer OTHER, SELFPAY ==
[2020-11-03] VITALS (10 sets, daily range): BP systolic 113–138; BP diastolic 66–95; PULSE 63–71; RESP 12–24; O2SAT 93–97
--- NOTE | 2020-11-03 10:04 | DI.RAD.S_ITS ---
PROCEDURE: PAIN L/S TRANSFORAMINAL INJECT INDICATIONS: SPONDYLOSIS COMPARISON: [facility], , PAIN L/S TRANSFORAMINAL INJECT, 09/10/2019, 8:11. FINDINGS: Fluoroscopic spot filming was performed to verify placement of a spinal needle at the L3-L4 level, as labeled on the films. Appropriate location of the needle tip was confirmed by injection of iodinated contrast. IMPRESSION: Intraprocedural examination within normal limits. Dictated by: Aniket Duval M.D. on 11/03/2020 at 11:11 Approved by: Aniket Duval M.D. on 11/03/2020 at 11:12
[2020-11-03] MEDS: fentaNYL 100 MCG/2 ML INJ 50 MCG IV (10:47)
[2020-11-03] MEDS: MIDAZOLAM 5 MG/5 ML VIAL IV (10:47)
[2020-11-03] MEDS: BUPIVACAINE 0.25% (PF) VIAL 2 ML INJ (10:53)
[2020-11-03] MEDS: DEXAMETHASONE 10 MG/ML VIAL 20 MG INJ (10:53)
[2020-11-03] MEDS: IOPAMIDOL 15 ML VIAL 3 ML INJ (10:54)
[2020-11-03] MEDS: BETAMETHASONE 30 MG/5 ML MDV 6 MG INJ (10:54)
--- NOTE | 2020-11-03 11:03 | P.PCN_ITS ---
Date/Time/Diagnoses Date of procedure: 11/03/20 Time of procedure: 11:03 Pre-procedure diagnosis: 1. FORAMINAL STENOSIS WITH LE SYMPTOMS Post-procedure diagnosis: same Procedure Notes Procedure: 1. FLUOROSCOPICALLY GUIDED CONTRAST CONTROLLED TRANSFORAMINAL EPIDURAL STEROID INJECTION - LEFT L3/4 TFESI Indications: Adrian is referred by Dr. Saldana for treatment of Foraminal Stenosis with left LE Symptoms Physician: Jenaro Sorto Total Fluoroscopy time (seconds): 11 Total sedation minutes: 12 Complications: none Procedure in detail & Post-procedure care: FINDINGS Foraminal Nerve Root Compression secondary to disc disease and facet hypertrophy DESCRIPTION OF PROCEDURE Following review of allergy and review of potential side effects and complications, including, but not necessarily limited to, infection, allergic reaction, local tissue breakdown, stroke, temporary or permanent nerve injury, paralysis, and possible , the patient indicated that the patient understood and agreed to proceed. An informed consent document was signed by the patient, witnessed by a nurse, and placed in the patient's chart. Additionally, other treatment options including medications, modalities, and physical therapy were reviewed with the patient. After review of previous anaesthesic history and IV conscious sedation the patient was deemed safe to proceed with today?s procedure with IV conscious sedation as ASA class II designation. Safety time-out was performed to confirm patient ID, procedure to be performed and site of procedure. IV sedation was accomplished with a combination of 3mg of Versed and 50mcg of Fentanyl was administered by the RN after DO order, titrated to patient comfort during the course of the procedure while the patient remained responsive to all verbal c ommands In the prone position following sterile prep and drape of the lumbar region, the left L3/4 posterior neuroforamen was identified fluoroscopically. The skin was anesthetized via a 25-gauge 1.5-inch needle with 1% lidocaine solution. At this point, a 25-gauge 3.5-inch spinal needle was atraumatically introduced and advanced under fluoroscopic guidance through the posterior left L3/4 neuro foramen to approximately the anterior aspect of the canal. Depth was confirmed on lateral view. Following negative aspiration, injection of approximately 1.5 cc of Isovue 200 under live fluoroscopy in the AP view confirmed excellent flow along the nerve root, into the epidural space without vascular or intrathecal uptake observed Radiological data, including multiple fluoroscopic views of the lumbosacral spine, reveal a spinal needle at the left L3/4 posterior neuroforamen. Subsequent views show flow of contrast material flowing superiorly and inferiorly along the nerve root confirming epidural flow. Subsequently, a test dose of 1.5cc of 1% lidocaine solution was administered and patient was observed for two minutes for signs or symptoms of complications, including abdominal pain, shortness of breath, bilateral upper or lower extremity weakness, nausea and vomiting, prior to steroid injection. At this point, a total of 3cc or 20mg of dexamethasone and 6mg betamethasone was in jected without incident. The patient tolerated the procedure well without signs or symptoms of complications prior to transfer to the recovery area continued monitoring without incident. The patient was then transferred to the recovery area where they were observed for an appropriate time after the injection. The patient reported a VAS score of 7 prior to the procedure and a post-procedure VAS of 0. POST OP INSTRUCTIONS The patient was provided a Pain Log to continue to record their response to the target-specific procedure prior to follow-up visit with their referring physician. Additionally, specific post-injection care instructions and a contact number to our office were provided if concerns arise regarding possible complications associated with the procedure are suspected.
== END 2020-11-03 11:30 | disposition home or self-care (01) ==
PROVIDERS: Family Provider Student in an Organized Health Care Education/Training Program; PCP Student in an Organized Health Care Education/Training Program; Referring Provider Physical Medicine & Rehabilitation; Visit Provider Physical Medicine & Rehabilitation
DX: M48.061 Spinal stenosis, lumbar region without neurogenic claudication (principal); M51.16 Intervertebral disc disorders with radiculopathy, lumbar region
CPT/HCPCS: 64483; 99152; J0702; J1100; J2250; J3010

== ENCOUNTER → 2020-12-05 10:56 | Outpatient (CLI) | payer OTHER, SELFPAY ==
--- NOTE | 2020-12-05 10:57 | DI.RAD.S_ITS ---
PROCEDURE: XR LUMBAR SPINE MIN 4V INDICATIONS: back pain TECHNIQUE: 5 views of the lumbar spine were acquired, including bilateral oblique views. COMPARISON: [facility], CR, XR LUMBAR SPINE MIN 4V, 10/26/2019, 17:29. FINDINGS: Bones: No acute fracture identified. Multilevel degenerative endplate sclerosis and spurring. Diffuse facet arthropathy. Unchanged grade 1 retrolisthesis of L1 on L2, L2 on L3 and L3 on L4. Diffuse moderate narrowing of the lumbar disc spaces which is grossly unchanged. Levoscoliosis of the lumbar spine. Mild bilateral hip joint degeneration. Soft tissues: Overlying bowel gas pattern is normal. No suspicious soft tissue calcifications. Oblique images: No pars defects. IMPRESSION: Unchanged lumbar spondylosis and facet arthropathy since 10/26/19. Multilevel spondylolisthesis as above. Levoscoliosis as before Dictated by: Kavin Fisher M.D. on 12/05/2020 at 11:46 Approved by: Kavin Fisher M.D. on 12/05/2020 at 11:48
== END ==
PROVIDERS: Family Provider Student in an Organized Health Care Education/Training Program; PCP Student in an Organized Health Care Education/Training Program; Referring Provider Physical Medicine & Rehabilitation; Visit Provider Physical Medicine & Rehabilitation
DX: M48.061 Spinal stenosis, lumbar region without neurogenic claudication (principal); M48.062 Spinal stenosis, lumbar region with neurogenic claudication; M47.816 Spondylosis without myelopathy or radiculopathy, lumbar region; M43.16 Spondylolisthesis, lumbar region; M41.86 Other forms of scoliosis, lumbar region; M16.0 Bilateral primary osteoarthritis of hip
CPT/HCPCS: 72110

== ENCOUNTER → 2021-03-21 08:21 | Outpatient (CLI) | payer OTHER, SELFPAY ==
[2021-03-21 12:28] LABS: COVID19 -Nasal RAPID Negative (Negative)
== END ==
PROVIDERS: Family Provider Student in an Organized Health Care Education/Training Program; PCP Student in an Organized Health Care Education/Training Program; Visit Provider Physical Medicine & Rehabilitation
DX: Z20.822 Contact with and (suspected) exposure to COVID-19 (principal)
CPT/HCPCS: 87635; C9803

== ENCOUNTER 2021-03-23 10:07 | Outpatient (CLI) | payer OTHER, SELFPAY ==
[2021-03-23] VITALS (10 sets, daily range): BP systolic 122–149; BP diastolic 78–89; PULSE 66–78; RESP 12–21; TEMP 36.6; O2SAT 94–98
--- NOTE | 2021-03-23 10:08 | DI.RAD.S_ITS ---
PROCEDURE: PAIN L/S TRANSFORAMINAL INJECT INDICATIONS: SPONDYLOSIS COMPARISON: [facility], , PAIN L/S TRANSFORAMINAL INJECT, 11/03/2020, 10:51. FINDINGS: Fluoroscopic spot filming was performed to verify placement of a spinal needle at the L3-L4 level, as labeled on the films. Appropriate location of the needle tip was confirmed by injection of iodinated contrast. IMPRESSION: Intraprocedural examination within normal limits. Dictated by: Aniket Duval M.D. on 03/23/2021 at 10:26 Approved by: Aniket Duval M.D. on 03/23/2021 at 10:26
[2021-03-23] MEDS: fentaNYL 100 MCG/2 ML INJ 50 MCG IV (10:35)
[2021-03-23] MEDS: BUPIVACAINE 0.25% (PF) VIAL 2 ML INJ (10:40)
[2021-03-23] MEDS: IOPAMIDOL 15 ML VIAL 3 ML INJ (10:40)
[2021-03-23] MEDS: DEXAMETHASONE 10 MG/ML VIAL 20 MG INJ (10:40)
[2021-03-23] MEDS: methylPREDNISolone acetate 80 MG/ML VIAL INJ (10:41)
[2021-03-23] MEDS: MIDAZOLAM 5 MG/5 ML VIAL IV (10:42)
--- NOTE | 2021-03-23 10:49 | P.PCN_ITS ---
Date/Time/Diagnoses Date of procedure: 03/23/21 Time of procedure: 10:49 Pre-procedure diagnosis: 1. FORAMINAL STENOSIS WITH LE SYMPTOMS Post-procedure diagnosis: same Procedure Notes Procedure: 1. FLUOROSCOPICALLY GUIDED CONTRAST CONTROLLED TRANSFORAMINAL EPIDURAL STEROID INJECTION - LEFT L3/4 TFESI Indications: Adrian is referred by Dr. Saldana for treatment of Foraminal Stenosis with left LE Symptoms Physician: Jenaro Sorto Total Fluoroscopy time (seconds): 9 Total sedation minutes: 11 Complications: none Procedure in detail & Post-procedure care: FINDINGS Foraminal Nerve Root Compression secondary to disc disease and facet hypertrophy DESCRIPTION OF PROCEDURE Following review of allergy and review of potential side effects and complications, including, but not necessarily limited to, infection, allergic reaction, local tissue breakdown, stroke, temporary or permanent nerve injury, paralysis, and possible , the patient indicated that the patient understood and agreed to proceed. An informed consent document was signed by the patient, witnessed by a nurse, and placed in the patient's chart. Additionally, other treatment options including medications, modalities, and physical therapy were reviewed with the patient. After review of previous anaesthesic history and IV conscious sedation the patient was deemed safe to proceed with today?s procedure with IV conscious sedation as ASA class II designation. Safety time-out was performed to confirm patient ID, procedure to be performed and site of procedure. IV sedation was accomplished with a combination of 4mg of Versed and 50mcg of Fentanyl was administered by the RN after DO order, titrated to patient comfort during the course of the procedure while the patient remained responsive to all verbal co mmands In the prone position following sterile prep and drape of the lumbar region, the left L3/4 posterior neuroforamen was identified fluoroscopically. The skin was anesthetized via a 25-gauge 1.5-inch needle with 1% lidocaine solution. At this point, a 25-gauge 3.5-inch spinal needle was atraumatically introduced and advanced under fluoroscopic guidance through the posterior left L3/4 neurof oramen to approximately the anterior aspect of the canal. Depth was confirmed on lateral view. Following negative aspiration, injection of approximately 1.5 cc of Isovue 200 under live fluoroscopy in the AP view confirmed excellent flow along the nerve root, into the epidural space without vascular or intrathecal uptake observed Radiological data, including multiple fluoroscopic views of the lumbosacral spine, reveal a spinal needle at the left L3/4 posterior neuroforamen. Subsequent views show flow of contrast material flowing superiorly and inferiorly along the nerve root confirming epidural flow. Subsequently, a test dose of 1.5cc of 1% lidocaine solution was administered and patient was observed for two minutes for signs or symptoms of complications, including abdominal pain, shortness of breath, bilateral upper or lower extremity weakness, nausea and vomiting, prior to steroid injection. At this point, a total of 3cc or 20mg of dexamethasone and 80mg of Depo medrol was i njected without incident. The patient tolerated the procedure well without signs or symptoms of complications prior to transfer to the recovery area continued monitoring without incident. The patient was then transferred to the recovery area where they were observed for an appropriate time after the injection. The patient reported a VAS score of 7 prior to the procedure and a post-procedure VAS of 0. POST OP INSTRUCTIONS The patient was provided a Pain Log to continue to record their response to the target-specific procedure prior to follow-up visit with their referring physician. Additionally, specific post-injection care instructions and a contact number to our office were provided if concerns arise regarding possible complications associated with the procedure are suspected.
== END 2021-03-23 11:15 | disposition home or self-care (01) ==
PROVIDERS: Family Provider Student in an Organized Health Care Education/Training Program; PCP Student in an Organized Health Care Education/Training Program; Referring Provider Physical Medicine & Rehabilitation; Visit Provider Physical Medicine & Rehabilitation
DX: M48.061 Spinal stenosis, lumbar region without neurogenic claudication (principal); M51.16 Intervertebral disc disorders with radiculopathy, lumbar region
CPT/HCPCS: 64483; 99152; J1040; J1100; J2250; J3010

== ENCOUNTER → 2021-08-08 09:14 | Outpatient (CLI) | payer OTHER, SELFPAY ==
[2021-08-08 11:58] LABS: COVID19 -Nasal RAPID Negative (Negative)
== END ==
PROVIDERS: Family Provider Student in an Organized Health Care Education/Training Program; PCP Student in an Organized Health Care Education/Training Program; Referring Provider Physical Medicine & Rehabilitation; Visit Provider Physical Medicine & Rehabilitation
DX: Z20.822 Contact with and (suspected) exposure to COVID-19 (principal)
CPT/HCPCS: 87635; C9803

== ENCOUNTER 2021-08-10 14:55 | Outpatient (CLI) | payer OTHER, SELFPAY ==
[2021-08-10] VITALS (9 sets, daily range): BP systolic 137–173; BP diastolic 94–101; PULSE 74–86; RESP 13–22; TEMP 36.8; O2SAT 93–97
--- NOTE | 2021-08-10 14:56 | DI.RAD.S_ITS ---
PROCEDURE: PAIN L/S TRANSFORAMINAL INJECT INDICATIONS: SPONDYLOSIS COMPARISON: [facility], , PAIN L/S TRANSFORAMINAL INJECT, 03/23/2021, 10:41. FINDINGS: Fluoroscopic spot filming was performed to verify placement of spinal needles at the left L3-L4 foramen level(s), as labeled on the films. Appropriate location(s) of the needle tip(s) was confirmed by injection of iodinated contrast. IMPRESSION: Access needle appropriately localized to the left L3-L4 foramen for transforaminal epidural injection. Dictated by: Kathryn Goldstein MD, PhD on 08/10/2021 at 16:46 Approved by: Kathryn Goldstein MD, PhD on 08/10/2021 at 16:47
[2021-08-10] MEDS: MIDAZOLAM 5 MG/5 ML VIAL IV (15:33)
[2021-08-10] MEDS: fentaNYL 100 MCG/2 ML INJ 50 MCG IV (15:33)
[2021-08-10] MEDS: IOPAMIDOL 15 ML VIAL 3 ML INJ (15:36)
[2021-08-10] MEDS: BUPIVACAINE 0.25% (PF) VIAL 30 ML (15:36)
[2021-08-10] MEDS: BETAMETHASONE 30 MG/5 ML MDV 12 MG INJ (15:37)
[2021-08-10] MEDS: DEXAMETHASONE 10 MG/ML VIAL 20 MG INJ (15:37)
--- NOTE | 2021-08-10 15:49 | P.PCN_ITS ---
Date/Time/Diagnoses Date of procedure: 08/10/21 Time of procedure: 15:50 Pre-procedure diagnosis: 1. FORAMINAL STENOSIS WITH LE SYMPTOMS Post-procedure diagnosis: same Procedure Notes Procedure: 1. FLUOROSCOPICALLY GUIDED CONTRAST CONTROLLED TRANSFORAMINAL EPIDURAL STEROID INJECTION - LEFT L3/4 TFESI Indications: Adrian is referred by Dr. Saldana for treatment of Foraminal Stenosis with left LE Symptoms Physician: Jenaro Sorto Total Fluoroscopy time (seconds): 12 Total sedation minutes: 12 Complications: none Procedure in detail & Post-procedure care: FINDINGS Foraminal Nerve Root Compression secondary to disc disease and facet hypertrophy DESCRIPTION OF PROCEDURE Following review of allergy and review of potential side effects and complications, including, but not necessarily limited to, infection, allergic reaction, local tissue breakdown, stroke, temporary or permanent nerve injury, paralysis, and possible , the patient indicated that the patient understood and agreed to proceed. An informed consent document was signed by the patient, witnessed by a nurse, and placed in the patient's chart. Additionally, other treatment options including medications, modalities, and physical therapy were reviewed with the patient. After review of previous anaesthesic history and IV conscious sedation the patient was deemed safe to proceed with today?s procedure with IV conscious sedation as ASA class II designation. Safety time-out was performed to confirm patient ID, procedure to be performed and site of procedure. IV sedation was accomplished with a combination of 5mg of Versed and 50mcg of Fentanyl was administered by the RN after DO order, titrated to patient comfort during the course of the procedure while the patient remained responsive to all verbal com mands In the prone position following sterile prep and drape of the lumbar region, the left L3/4 posterior neuroforamen was identified fluoroscopically. The skin was anesthetized via a 25-gauge 1.5-inch needle with 1% lidocaine solution. At this point, a 22-gauge 5-inch spinal needle was atraumatically introduced and advanced under fluoroscopic guidance through the posterior left L3/4 neurofora men to approximately the anterior aspect of the canal. Depth was confirmed on lateral view. Following negative aspiration, injection of approximately 1.5cc of Isovue 200 under live fluoroscopy in the AP view confirmed excellent flow along the nerve root, into the epidural space without vascular or intrathecal uptake observed Radiological data, including multiple fluoroscopic views of the lumbosacral spine, reveal a spinal needle at the left L3/4 posterior neuroforamen. Subsequent views show flow of contrast material flowing superiorly and inferiorly along the nerve root confirming epidural flow. Subsequently, a test dose of 1.5cc of 1% lidocaine solution was administered and patient was observed for two minutes for signs or symptoms of complications, including abdominal pain, shortness of breath, bilateral upper or lower extremity weakness, nausea and vomiting, prior to steroid injection. At this point, a total of 4cc or 20mg of dexamethasone and 12mg betamethasone was inject ed without incident. The patient tolerated the procedure well without signs or symptoms of complications prior to transfer to the recovery area continued monitoring without incident. The patient was then transferred to the recovery area where they were observed for an appropriate time after the injection. The patient reported a VAS score of 7 prior to the procedure and a post-procedure VAS of 0. POST OP INSTRUCTIONS The patient was provided a Pain Log to continue to record their response to the target-specific procedure prior to follow-up visit with their referring physician. Additionally, specific post-injection care instructions and a contact number to our office were provided if concerns arise regarding possible complications associated with the procedure are suspected.
== END 2021-08-10 16:12 | disposition home or self-care (01) ==
LOC: RAD 14:55
PROVIDERS: Family Provider Student in an Organized Health Care Education/Training Program; PCP Student in an Organized Health Care Education/Training Program; Referring Provider Physical Medicine & Rehabilitation; Visit Provider Physical Medicine & Rehabilitation
DX: M48.061 Spinal stenosis, lumbar region without neurogenic claudication (principal); M51.16 Intervertebral disc disorders with radiculopathy, lumbar region
CPT/HCPCS: 64483; 99152; J0702; J1100; J2250; J3010

== ENCOUNTER → 2021-11-27 10:38 | Outpatient (CLI) | payer OTHER, SELFPAY ==
[2021-11-27 12:59] LABS: COVID19 -Nasal RAPID Negative (Negative)
== END ==
PROVIDERS: Family Provider Student in an Organized Health Care Education/Training Program; PCP Student in an Organized Health Care Education/Training Program; Visit Provider Physical Medicine & Rehabilitation
DX: Z20.822 Contact with and (suspected) exposure to COVID-19 (principal)
CPT/HCPCS: 87635; C9803

== ENCOUNTER 2021-11-28 08:16 | Outpatient (CLI) | payer OTHER, SELFPAY ==
[2021-11-28] VITALS (9 sets, daily range): BP systolic 128–152; BP diastolic 81–92; PULSE 65–71; RESP 14–21; TEMP 36.4; O2SAT 94–96
--- NOTE | 2021-11-28 08:18 | DI.RAD.S_ITS ---
PROCEDURE: PAIN L/S TRANSFORAMINAL INJECT INDICATIONS: SPONDYLOSIS COMPARISON: [facility], , PAIN L/S TRANSFORAMINAL INJECT, 08/10/2021, 15:36. FINDINGS: Fluoroscopic spot filming was performed to verify placement of a spinal needle at the L3-L4 level, as labeled on the films. Appropriate location of the needle tip was confirmed by injection of iodinated contrast. IMPRESSION: Intraprocedural examination within normal limits. Dictated by: Aniket Duval M.D. on 11/28/2021 at 8:15 Approved by: Aniket Duval M.D. on 11/28/2021 at 8:15
[2021-11-28] MEDS: fentaNYL 250 MCG/5 ML INJ 50 MCG IV (08:50)
[2021-11-28] MEDS: LIDOCAINE 2% INJ MDV 20 ML (08:53)
[2021-11-28] MEDS: IOPAMIDOL 15 ML VIAL 3 ML INJ (08:53)
[2021-11-28] MEDS: DEXAMETHASONE 10 MG/ML VIAL 20 MG INJ (08:54)
[2021-11-28] MEDS: BETAMETHASONE 30 MG/5 ML MDV 6 MG INJ (08:54)
[2021-11-28] MEDS: MIDAZOLAM 5 MG/5 ML VIAL IV (08:55)
--- NOTE | 2021-11-28 09:04 | P.PCN_ITS ---
Date/Time/Diagnoses Date of procedure: 11/28/21 Time of procedure: 09:04 Pre-procedure diagnosis: 1. FORAMINAL STENOSIS WITH LE SYMPTOMS Post-procedure diagnosis: same Procedure Notes Procedure: 1. FLUOROSCOPICALLY GUIDED CONTRAST CONTROLLED TRANSFORAMINAL EPIDURAL STEROID INJECTION - LEFT L3/4 TFESI Indications: Adrian is referred by Dr. Saldana for treatment of Foraminal Stenosis with left LE Symptoms Physician: Jenaro Sorto Total Fluoroscopy time (seconds): 8 Total sedation minutes: 10 Complications: none Procedure in detail & Post-procedure care: FINDINGS Foraminal Nerve Root Compression secondary to disc disease and facet hypertrophy DESCRIPTION OF PROCEDURE Following review of allergy and review of potential side effects and complications, including, but not necessarily limited to, infection, allergic reaction, local tissue breakdown, stroke, temporary or permanent nerve injury, paralysis, and possible , the patient indicated that the patient understood and agreed to proceed. An informed consent document was signed by the patient, witnessed by a nurse, and placed in the patient's chart. Additionally, other treatment options including medications, modalities, and physical therapy were reviewed with the patient. After review of previous anaesthesic history and IV conscious sedation the patient was deemed safe to proceed with today?s procedure with IV conscious sedation as ASA class II designation. Safety time-out was performed to confirm patient ID, procedure to be performed and site of procedure. IV sedation was accomplished with a combination of 5mg of Versed and 50mcg of Fentanyl was administered by the RN after DO order, titrated to patient comfort during the course of the procedure while the patient remained responsive to all verbal c ommands In the prone position following sterile prep and drape of the lumbar region, the left L3/4 posterior neuroforamen was identified fluoroscopically. The skin was anesthetized via a 25-gauge 1.5-inch needle with 1% lidocaine solution. At this point, a 25-gauge 3.5-inch spinal needle was atraumatically introduced and advanced under fluoroscopic guidance through the posterior left L3/4 neuro foramen to approximately the anterior aspect of the canal. Depth was confirmed on lateral view. Following negative aspiration, injection of approximately 1.5 cc of Isovue 200 under live fluoroscopy in the AP view confirmed excellent flow along the nerve root, into the epidural space without vascular or intrathecal uptake observed Radiological data, including multiple fluoroscopic views of the lumbosacral spine, reveal a spinal needle at the left L3/4 posterior neuroforamen. Subsequent views show flow of contrast material flowing superiorly and inferiorly along the nerve root confirming epidural flow. Subsequently, a test dose of 1.5cc of 1% lidocaine solution was administered and patient was observed for two minutes for signs or symptoms of complications, including abdominal pain, shortness of breath, bilateral upper or lower extremity weakness, nausea and vomiting, prior to steroid injection. At this point, a total of 3cc or 20mg of dexamethasone and 6mg betamethasone was in jected without incident. The patient tolerated the procedure well without signs or symptoms of complications prior to transfer to the recovery area continued monitoring without incident. The patient was then transferred to the recovery area where they were observed for an appropriate time after the injection. The patient reported a VAS score of 7 prior to the procedure and a post-procedure VAS of 0. POST OP INSTRUCTIONS The patient was provided a Pain Log to continue to record their response to the target-specific procedure prior to follow-up visit with their referring physician. Additionally, specific post-injection care instructions and a contact number to our office were provided if concerns arise regarding possible complications associated with the procedure are suspected.
== END 2021-11-28 09:27 | disposition home or self-care (01) ==
PROVIDERS: Family Provider Student in an Organized Health Care Education/Training Program; PCP Student in an Organized Health Care Education/Training Program; Referring Provider Physical Medicine & Rehabilitation; Visit Provider Physical Medicine & Rehabilitation
DX: M48.061 Spinal stenosis, lumbar region without neurogenic claudication (principal); M51.16 Intervertebral disc disorders with radiculopathy, lumbar region
CPT/HCPCS: 64483; 99152; J0702; J1100; J2250; J3010

== ENCOUNTER → 2022-04-16 10:18 | Outpatient (CLI) | payer OTHER, SELFPAY ==
[2022-04-16 11:00] LABS: COVID19 -Nasal RAPID Negative (Negative)
== END ==
PROVIDERS: Family Provider Student in an Organized Health Care Education/Training Program; PCP Student in an Organized Health Care Education/Training Program; Visit Provider Physical Medicine & Rehabilitation
DX: Z20.822 Contact with and (suspected) exposure to COVID-19 (principal)
CPT/HCPCS: 87635; C9803

== ENCOUNTER 2022-04-17 08:11 | Outpatient (CLI) | payer OTHER, SELFPAY ==
[2022-04-17] VITALS (8 sets, daily range): BP systolic 129–172; BP diastolic 85–106; PULSE 61–96; RESP 14–21; TEMP 36.4; O2SAT 94–98
--- NOTE | 2022-04-17 08:12 | DI.RAD.S_ITS ---
PROCEDURE: PAIN L/S TRANSFORAMINAL INJECT INDICATIONS: SPONDYLOSIS COMPARISON: [facility], , PAIN L/S TRANSFORAMINAL INJECT, 11/28/2021, 9:53. FINDINGS: Fluoroscopic spot filming was performed to verify placement of a spinal needle at the L3-L4 level, as labeled on the films. Appropriate location of the needle tip was confirmed by injection of iodinated contrast. IMPRESSION: Intraprocedural examination within normal limits. Dictated by: Aniket Duval M.D. on 04/17/2022 at 9:22 Approved by: Aniket Duval M.D. on 04/17/2022 at 9:22
[2022-04-17] MEDS: MIDAZOLAM 2 MG/2 ML VIAL 4 MG IV (09:10)
[2022-04-17] MEDS: IOPAMIDOL 15 ML VIAL 3 ML INJ (09:11)
[2022-04-17] MEDS: BUPIVACAINE 0.25% (PF) VIAL 30 ML INJ (09:12)
[2022-04-17] MEDS: BETAMETHASONE 30 MG/5 ML MDV 6 MG INJ (09:13)
[2022-04-17] MEDS: DEXAMETHASONE 10 MG/ML VIAL 20 MG INJ (09:14)
--- NOTE | 2022-04-17 09:22 | P.PCN_ITS ---
Date/Time/Diagnoses Date of procedure: 04/17/22 Time of procedure: 09:22 Pre-procedure diagnosis: 1. FORAMINAL STENOSIS WITH LE SYMPTOMS Post-procedure diagnosis: same Procedure Notes Procedure: 1. FLUOROSCOPICALLY GUIDED CONTRAST CONTROLLED TRANSFORAMINAL EPIDURAL STEROID INJECTION - LEFT L3/4 TFESI Indications: Adrian is referred by Dr. Cobian for treatment of Foraminal Stenosis with left LE Symptoms Physician: Jenaro Sorto Total Fluoroscopy time (seconds): 8 Total sedation minutes: 12 Complications: none Procedure in detail & Post-procedure care: FINDINGS Foraminal Nerve Root Compression secondary to disc disease and facet hypertrophy DESCRIPTION OF PROCEDURE Following review of allergy and review of potential side effects and complications, including, but not necessarily limited to, infection, allergic reaction, local tissue breakdown, stroke, temporary or permanent nerve injury, paralysis, and possible , the patient indicated that the patient understood and agreed to proceed. An informed consent document was signed by the patient, witnessed by a nurse, and placed in the patient's chart. Additionally, other treatment options including medications, modalities, and physical therapy were reviewed with the patient. After review of previous anaesthesic history and IV conscious sedation the patient was deemed safe to proceed with today?s procedure with IV conscious sedation as ASA class II designation. Safety time-out was performed to confirm patient ID, procedure to be performed and site of procedure. IV sedation was accomplished with a combination of 4mg of Versed was administered by the RN after DO order, titrated to patient comfort during the course of the procedure while the patient remained responsive to all verbal commands In the prone position following sterile prep and drape of the lumbar region, the left L3/4 posterior neuroforamen was identified fluoroscopically. The skin was anesthetized via a 25-gauge 1.5-inch needle with 1% lidocaine solution. At this point, a 25-gauge 3.5-inch spinal needle was atraumatically introduced and advanced under fluoroscopic guidance through the posterior left L3/4 neuroforamen to approximately the anterior aspect of the canal. Depth was confirmed on lateral view. Following negative aspiration, injection of approximately 1.5 cc of Isovue 200 under live fluoroscopy in the AP view confirm ed excellent flow along the nerve root, into the epidural space without vascular or intrathecal uptake observed Radiological data, including multiple fluoroscopic views of the lumbosacral spine, reveal a spinal needle at the left L3/4 posterior neuroforamen. Subsequent views show flow of contrast material flowing superiorly and inferiorly along the nerve root confirming epidural flow. Subsequently, a test dose of 1.5cc of 1% lidocaine solution was administered and patient was observed for two minutes for signs or symptoms of complications, including abdominal pain, shortness of breath, bilateral upper or lower extremity weakness, nausea and vomiting, prior to steroid injection. At this point, a total of 3cc or 20mg of dexamethasone and 6mg betamethasone was injected without incident. The patient tolerated the procedure well without signs or symptoms of complications prior to transfer to the recovery area continued monitoring without incident. The patient was then transferred to the recovery area where they were observed for an appropriate time after the injection. The patient reported a VAS score of 7 prior to the procedure and a post-procedure VAS of 0. POST OP INSTRUCTIONS The patient was provided a Pain Log to continue to record their response to the target-specific procedure prior to follow-up visit with their referring physician. Additionally, specific post-injection care instructions and a contact number to our office were provided if concerns arise regarding possible complications associated with the procedure are suspected.
== END 2022-04-17 09:40 | disposition home or self-care (01) ==
LOC: RAD 08:12
PROVIDERS: Family Provider Student in an Organized Health Care Education/Training Program; PCP Family Medicine; Referring Provider Physical Medicine & Rehabilitation; Visit Provider Physical Medicine & Rehabilitation
DX: M48.061 Spinal stenosis, lumbar region without neurogenic claudication (principal); M51.16 Intervertebral disc disorders with radiculopathy, lumbar region
CPT/HCPCS: 64483; 99152; J0702; J1100; J2250

== ENCOUNTER → 2022-06-07 14:38 | Outpatient (CLI) | payer OTHER, SELFPAY ==
--- NOTE | 2022-06-07 14:39 | DI.US.S_ITS ---
PROCEDURE: US ABDOMEN LIMITED INDICATIONS: Rule out gallstones TECHNIQUE: Real-time focused scanning was performed of the abdomen, with image documentation. COMPARISON: None. FINDINGS: The liver demonstrates mildly enlarged size. The liver demonstrates generalized mildly increased echogenicity. This decreases ultrasound sensitivity for detection of hepatic masses. The main portal vein demonstrates normal size and demonstrates normal appearing, hepatopetal flow. No findings of gallstones or sludge are seen. The gallbladder wall is not thickened, measuring 3 mm or less. No specific pericholecystic fluid is seen. The sonographic Roberts sign is negative. There is no biliary dilatation, the common bile duct measures 5 mm. No significant pancreatic abnormality is seen on these images. The IVC is patent. No free fluid can be seen. IMPRESSION: No gallstones are seen. The gallbladder demonstrates a normal sonographic appearance. No biliary dilatation is seen. Mildly enlarged, mildly fatty liver. Dictated by: Aniket Duval M.D. on 06/07/2022 at 14:58 Approved by: Aniket Duval M.D. on 06/07/2022 at 14:59
== END ==
PROVIDERS: Family Provider Student in an Organized Health Care Education/Training Program; PCP Family Medicine; Referring Provider Surgery; Visit Provider Surgery
DX: R10.9 Unspecified abdominal pain (principal); K76.0 Fatty (change of) liver, not elsewhere classified
CPT/HCPCS: 76705

== ENCOUNTER 2022-06-12 11:08 | Day surgery (SDC) | payer OTHER, SELFPAY ==
--- NOTE | 2022-06-12 | PATH_ITS ---
[facility] Accession Number: [id number] . 01 Material submitted: . duodenum - DUODENUM BIOPSY . 01 Diagnosis: Duodenum, Biopsy: Duodenal mucosa with active inflammation and reactive epithelial changes, including gastric surface foveolar metaplasia, consistent with peptic duodenitis. Negative for intraepithelial lymphocytosis. Negative for dysplasia and malignancy. MRV 06/14/2022 1410 Local . 01 Electronically signed: . Natasha Castro MD, Pathologist NPI- [id number] . 01 Gross description: . DUODENUM BIOPSY: Received in formalin are 2 fragment(s) of whitlock, soft tissue measuring 0.3 x 0.2 x 0.1 cm to 0.2 x 0.1 x 0.1 cm submitted entirely in 1 cassette(s) /CPE 06/13/2022 0702 Local . 01 Pathologist provided ICD-10: K21.9 . 01 CPT . 103255 Specimen Comment: A courtesy copy of this report has been sent to [phone] Performed at: 01 [facility] [address] [place] [address] [id number] MD Kurt Rowland MD Phone: [phone]
[2022-06-12 11:27] VITALS: BP 155/89; PULSE 60; RESP 16; TEMP 36.7; O2SAT 97; BMI 32.3
[2022-06-12 12:17] VITALS: BMI 32.3
--- NOTE | 2022-06-12 12:50 | PM.PREOP ---
Pre-operative Note Interval Note History & Physical reviewed/Exam performed by Physician: Yes Changes to H&P: No
[2022-06-12] MEDS: LIDOCAINE 4% SOLN 50 ML 20 ML TOP (12:56)
--- NOTE | 2022-06-12 13:06 | PM.OP.EGD ---
Operative Date/Time/Diagnoses Date of procedure: 06/12/22 Time of procedure: 13:06 Pre-op diagnosis: Gastroesophageal reflux Post-op diagnosis: same Procedure & Clinicians Study performed: Esophagoduodenoscopy Same procedure as scheduled: Yes Indications: Abdominal pain, gastroesophageal reflux Surgeon: Pato Macias Procedure Notes Procedure in detail: Patient placed in left lateral decubitus position. Time out was performed. Procedural sedation was administered with Versed and Fentanyl. A bite block was placed. the scope was inserted into the mouth and advanced through the esophagus and into the stomach which was notable for moderate gastritis no ulcer or active bleeding. The pylorus was intubated and the duodenum was notable for patchy duodenitis to at least the 2nd portion of the duodenum. Biopsy of the duodenum was performed with forceps.. The scope was retroflexed within the stomach and there was a small hiatal hernia. The scope was withdrawn into the esophagus the Z line was seen at 40 cm from the incisions. There was no Del Cid's esophagitis or masses or strictures. Stomach was desufflated and scope removed. Patient tolerated procedure well. Specimen(s): other (Duodenal) Complications: none Impression: Gastritis and duodenitis Post-procedure Plan for aftercare: Will notify with results of biopsy. Continue pantoprazole as written Disposition: same day surgery
[2022-06-12] MEDS: fentaNYL 100 MCG/2 ML INJ IV (13:07)
[2022-06-12] MEDS: MIDAZOLAM 5 MG/5 ML VIAL IV (13:08)
[2022-06-12 13:13] VITALS: BP 159/97; PULSE 66; RESP 20; TEMP 36.8; O2SAT 94
[2022-06-12 13:18] VITALS: BP 152/85; PULSE 68; RESP 17; O2SAT 93
[2022-06-12 13:23] VITALS: BP 153/90; PULSE 72; RESP 20; O2SAT 92
[2022-06-12 13:28] VITALS: BP 148/97; PULSE 64; RESP 18; TEMP 36.9; O2SAT 96
[2022-06-12 13:35] VITALS: BP 138/83; PULSE 65; RESP 16; TEMP 36.8; O2SAT 93
== END 2022-06-12 13:40 | disposition home or self-care (01) ==
PROVIDERS: Family Provider Student in an Organized Health Care Education/Training Program; PCP Family Medicine; Referring Provider Surgery; Visit Provider Surgery
PROC: 0DJ08ZZ Inspection of Upper Intestinal Tract, Via Natural or Artificial Opening Endoscopic (ICD-10-PCS; CPT 43235; principal; 2022-06-12 12:45)
DX: K21.9 Gastro-esophageal reflux disease without esophagitis (principal); Z20.822 Contact with and (suspected) exposure to COVID-19; K29.80 Duodenitis without bleeding; K44.9 Diaphragmatic hernia without obstruction or gangrene; K29.50 Unspecified chronic gastritis without bleeding
CPT/HCPCS: 43239; 87635; J2250; J3010

== ENCOUNTER → 2022-06-12 11:33 | Outpatient (CLI) | payer OTHER, SELFPAY ==
[2022-06-12 12:01] LABS: COVID19 -Nasal RAPID Negative (Negative)
== END ==
PROVIDERS: Family Provider Student in an Organized Health Care Education/Training Program; PCP Family Medicine; Visit Provider Surgery
DX: Z01.812 Encounter for preprocedural laboratory examination (principal); Z20.822 Contact with and (suspected) exposure to COVID-19
CPT/HCPCS: 87635

== ENCOUNTER 2022-08-14 08:12 | Outpatient (CLI) | payer OTHER, SELFPAY ==
[2022-08-14] VITALS (9 sets, daily range): BP systolic 135–163; BP diastolic 88–101; PULSE 70–79; RESP 12–20; TEMP 36.4; O2SAT 94–97
--- NOTE | 2022-08-14 08:13 | DI.RAD.S_ITS ---
PROCEDURE: PAIN L/S TRANSFORAMINAL INJECT INDICATIONS: SPONDYLOSIS COMPARISON: [facility], , PAIN L/S TRANSFORAMINAL INJECT, 04/17/2022, 9:11. FINDINGS: Fluoroscopic spot filming was performed to verify placement of a spinal needle at the L3-L4 level, as labeled on the films. Appropriate location of the needle tip was confirmed by injection of iodinated contrast. IMPRESSION: Intraprocedural examination within normal limits. Dictated by: Aniket Duval M.D. on 08/14/2022 at 15:00 Approved by: Aniket Duval M.D. on 08/14/2022 at 15:00
--- NOTE | 2022-08-14 08:44 | PC.NURSE ---
large bruise (4x4) noticed on lateral left bicep. purple radiating to yellow. patient stated that he got it at work.
[2022-08-14] MEDS: MIDAZOLAM 2 MG/2 ML VIAL IV (09:25)
[2022-08-14] MEDS: IOPAMIDOL 15 ML VIAL 3 ML INJ (09:29)
[2022-08-14] MEDS: BUPIVACAINE 0.25% (PF) VIAL 2 ML INJ (09:29)
[2022-08-14] MEDS: DEXAMETHASONE 10 MG/ML VIAL 20 MG INJ (09:30)
[2022-08-14] MEDS: BETAMETHASONE 30 MG/5 ML MDV 6 MG INJ (09:30)
--- NOTE | 2022-08-14 09:40 | PM.PROC.IR.1 ---
Date/Time/Diagnoses Date of procedure: 08/14/22 Time of procedure: 09:40 Pre-procedure diagnosis: 1. FORAMINAL STENOSIS WITH LE SYMPTOMS Post-procedure diagnosis: same Procedure Notes Procedure: 1. FLUOROSCOPICALLY GUIDED CONTRAST CONTROLLED TRANSFORAMINAL EPIDURAL STEROID INJECTION - LEFT L3/4 TFESI Indications: Adrian is referred by Dr. Cobian for treatment of Foraminal Stenosis with left LE Symptoms Physician: Jenaro Sorto Total Fluoroscopy time (seconds): 9 Total sedation minutes: 13 Complications: none Procedure in detail & Post-procedure care: FINDINGS Foraminal Nerve Root Compression secondary to disc disease and facet hypertrophy DESCRIPTION OF PROCEDURE Following review of allergy and review of potential side effects and complications, including, but not necessarily limited to, infection, allergic reaction, local tissue breakdown, stroke, temporary or permanent nerve injury, paralysis, and possible , the patient indicated that the patient understood and agreed to proceed. An informed consent document was signed by the patient, witnessed by a nurse, and placed in the patient's chart. Additionally, other treatment options including medications, modalities, and physical therapy were reviewed with the patient. After review of previous anaesthesic history and IV conscious sedation the patient was deemed safe to proceed with today?s procedure with IV conscious sedation as ASA class II designation. Safety time-out was performed to confirm patient ID, procedure to be performed and site of procedure. IV sedation was accomplished with a combination of 2mg of Versed was administered by the RN after DO order, titrated to patient comfort during the course of the procedure while the patient remained responsive to all verbal commands In the prone position following sterile prep and drape of the lumbar region, the left L3/4 posterior neuroforamen was identified fluoroscopically. The skin was anesthetized via a 25-gauge 1.5-inch needle with 1% lidocaine solution. At this point, a 25-gauge 3.5-inch spinal needle was atraumatically introduced and advanced under fluoroscopic guidance through the posterior left L3/4 neuroforamen to approximately the anterior aspect of the canal. Depth was confirmed on lateral view. Following negative aspiration, injection of approximately 1.5 cc of Isovue 200 under live fluoroscopy in the AP view confirmed excellent flow along the nerve root, into the epidural space without vascular or intrathecal uptake observed Radiological data, including multiple fluoroscopic views of the lumbosacral spine, reveal a spinal needle at the left L3/4 posterior neuroforamen. Subsequent views show flow of contrast material flowing superiorly and inferiorly along the nerve root confirming epidural flow. Subsequently, a test dose of 1.5cc of 1% lidocaine solution was administered and patient was observed for two minutes for signs or symptoms of complications, including abdominal pain, shortness of breath, bilateral upper or lower extremity weakness, nausea and vomiting, prior to steroid injection. At this point, a total of 3cc or 20mg of dexamethasone and 6mg betamethasone was injected without incident. The patient tolerated the procedure well without signs or symptoms of complications prior to transfer to the recovery area continued monitoring without incident. The patient was then transferred to the recovery area where they were observed for an appropriate time after the injection. The patient reported a VAS score of 7 prior to the procedure and a post-procedure VAS of 0. POST OP INSTRUCTIONS The patient was provided a Pain Log to continue to record their response to the target-specific procedure prior to follow-up visit with their referring physician. Additionally, specific post-injection care instructions and a contact number to our office were provided if concerns arise regarding possible complications associated with the procedure are suspected.
== END 2022-08-14 09:59 | disposition home or self-care (01) ==
LOC: RAD 08:13
PROVIDERS: Family Provider Student in an Organized Health Care Education/Training Program; PCP Family Medicine; Referring Provider Physical Medicine & Rehabilitation; Visit Provider Physical Medicine & Rehabilitation
DX: M48.061 Spinal stenosis, lumbar region without neurogenic claudication (principal); M51.16 Intervertebral disc disorders with radiculopathy, lumbar region
CPT/HCPCS: 64483; 99152; J0702; J1100; J2250; J3490

== ENCOUNTER 2023-03-14 08:26 | Outpatient (CLI) | payer OTHER, SELFPAY ==
[2023-03-14] VITALS (11 sets, daily range): BP systolic 137–152; BP diastolic 83–94; PULSE 58–72; RESP 10–22; TEMP 36.6; O2SAT 93–97
--- NOTE | 2023-03-14 08:27 | DI.RAD.S_ITS ---
PROCEDURE: PAIN L/S TRANSFORAMINAL INJECT INDICATIONS: SPONDYLOSIS COMPARISON: [facility], , PAIN L/S TRANSFORAMINAL INJECT, 08/14/2022, 10:29. FINDINGS: Fluoroscopic spot filming was performed to verify placement of spinal needles at the mid lumbar level(s), as labeled on the films. Appropriate location(s) of the needle tip(s) was confirmed by injection of iodinated contrast. IMPRESSION: Needle placement as above. Dictated by: Maurice Dixon M.D. on 03/14/2023 at 10:40 Approved by: Maurice Dixon M.D. on 03/14/2023 at 10:40
[2023-03-14] MEDS: DEXAMETHASONE 10 MG/ML VIAL 20 MG INJ (09:11)
[2023-03-14] MEDS: methylPREDNISolone acetate 80 MG/ML VIAL INJ (09:11)
[2023-03-14] MEDS: IOPAMIDOL 15 ML VIAL 3 ML INJ (09:13)
[2023-03-14] MEDS: MIDAZOLAM 2 MG/2 ML VIAL 4 MG IV (09:14)
[2023-03-14] MEDS: BUPIVACAINE 0.25% MDV 2 ML INJ (09:15)
--- NOTE | 2023-03-14 09:22 | P.PCN_ITS ---
Date/Time/Diagnoses Date of procedure: 03/14/23 Time of procedure: 09:22 Pre-procedure diagnosis: 1. FORAMINAL STENOSIS WITH LE SYMPTOMS Post-procedure diagnosis: same Procedure Notes Procedure: 1. FLUOROSCOPICALLY GUIDED CONTRAST CONTROLLED TRANSFORAMINAL EPIDURAL STEROID INJECTION - LEFT L3/4 TFESI Indications: Adrian is referred by Dr. Cobian for treatment of Foraminal Stenosis with left LE Symptoms Physician: Jenaro Sorto Total Fluoroscopy time (seconds): 14 Total sedation minutes: 14 Complications: none Procedure in detail & Post-procedure care: FINDINGS Foraminal Nerve Root Compression secondary to disc disease and facet hypertrophy DESCRIPTION OF PROCEDURE Following review of allergy and review of potential side effects and complications, including, but not necessarily limited to, infection, allergic reaction, local tissue breakdown, stroke, temporary or permanent nerve injury, paralysis, and possible , the patient indicated that the patient understood and agreed to proceed. An informed consent document was signed by the patient, witnessed by a nurse, and placed in the patient's chart. Additionally, other treatment options including medications, modalities, and physical therapy were reviewed with the patient. After review of previous anaesthesic history and IV conscious sedation the patient was deemed safe to proceed with today?s procedure with IV conscious sedation as ASA class II designation. Safety time-out was performed to confirm patient ID, procedure to be performed and site of procedure. IV sedation was accomplished with a combination of 4mg of Versed was administered by the RN after DO order, titrated to patient comfort during the course of the procedure while the patient remained responsive to all verbal commands In the prone position following sterile prep and drape of the lumbar region, the left L3/4 posterior neuroforamen was identified fluoroscopically. The skin was anesthetized via a 25-gauge 1.5-inch needle with 1% lidocaine solution. At this point, a 25-gauge 3.5-inch spinal needle was atraumatically introduced and advanced under fluoroscopic guidance through the posterior left L3/4 neuroforamen to approximately the anterior aspect of the canal. Depth was confirmed on lateral view. Following negative aspiration, injection of approximately 1.5 cc of Isovue 200 under live fluoroscopy in the AP view confirm ed excellent flow along the nerve root, into the epidural space without vascular or intrathecal uptake observed Radiological data, including multiple fluoroscopic views of the lumbosacral spine, reveal a spinal needle at the left L3/4 posterior neuroforamen. Subsequent views show flow of contrast material flowing superiorly and inferiorly along the nerve root confirming epidural flow. Subsequently, a test dose of 1.5cc of 1% lidocaine solution was administered and patient was observed for two minutes for signs or symptoms of complications, including abdominal pain, shortness of breath, bilateral upper or lower extremity weakness, nausea and vomiting, prior to steroid injection. At this point, a total of 3cc or 20mg of dexamethasone and 80mg depomedrol was injected without incident. The patient tolerated the procedure well without signs or symptoms of complications prior to transfer to the recovery area continued monitoring without incident. The patient was then transferred to the recovery area where they were observed for an appropriate time after the injection. The patient reported a VAS score of 7 prior to the procedure and a post-procedure VAS of 0. POST OP INSTRUCTIONS The patient was provided a Pain Log to continue to record their response to the target-specific procedure prior to follow-up visit with their referring physician. Additionally, specific post-injection care instructions and a contact number to our office were provided if concerns arise regarding possible complications associated with the procedure are suspected.
== END 2023-03-14 09:53 | disposition home or self-care (01) ==
LOC: RAD 08:26
PROVIDERS: Family Provider Student in an Organized Health Care Education/Training Program; PCP Family Medicine; Referring Provider Physical Medicine & Rehabilitation; Visit Provider Physical Medicine & Rehabilitation
DX: M48.061 Spinal stenosis, lumbar region without neurogenic claudication (principal); M51.16 Intervertebral disc disorders with radiculopathy, lumbar region; M47.26 Other spondylosis with radiculopathy, lumbar region
CPT/HCPCS: 64483; 99152; J1040; J1100; J2250

== ENCOUNTER 2023-09-12 07:31 | Outpatient (CLI) | payer OTHER, SELFPAY ==
[2023-09-12] VITALS (10 sets, daily range): BP systolic 128–152; BP diastolic 82–103; PULSE 54–65; RESP 12–22; O2SAT 93–97
--- NOTE | 2023-09-12 08:00 | DI.RAD.S_ITS ---
PROCEDURE: PAIN L/S TRANSFORAMINAL INJECT INDICATIONS: SPONDYLOSIS COMPARISON: [facility], , PAIN L/S TRANSFORAMINAL INJECT, 03/14/2023, 9:09. FINDINGS: Fluoroscopic spot filming was performed to verify placement of spinal needles at the left L3-4 level(s), as labeled on the films. Appropriate location(s) of the needle tip(s) was confirmed by injection of iodinated contrast. IMPRESSION: Fluoroscopic support for lumbosacral transforaminal injection Please see separate procedure note for further details. Dictated by: Oj Gonzales M.D. on 09/12/2023 at 10:52 Approved by: Oj Gonzales M.D. on 09/12/2023 at 10:53
[2023-09-12] MEDS: MIDAZOLAM 2 MG/2 ML VIAL IV ×2 (08:18→08:27)
[2023-09-12] MEDS: BUPIVACAINE 0.25% (PF) VIAL 2 ML INJ (08:18)
[2023-09-12] MEDS: BETAMETHASONE 30 MG/5 ML MDV 6 MG INJ (08:23)
[2023-09-12] MEDS: DEXAMETHASONE 10 MG/ML VIAL INJ (08:23)
[2023-09-12] MEDS: iopamidoL 15 ML VIAL 3 ML INJ (08:27)
--- NOTE | 2023-09-12 08:39 | P.PCN_ITS ---
Date/Time/Diagnoses Date of procedure: 09/12/23 Time of procedure: 08:39 Pre-procedure diagnosis: 1. FORAMINAL STENOSIS WITH LE SYMPTOMS Post-procedure diagnosis: same Procedure Notes Procedure: 1. FLUOROSCOPICALLY GUIDED CONTRAST CONTROLLED TRANSFORAMINAL EPIDURAL STEROID INJECTION - LEFT L3/4 TFESI Indications: Adrian is referred by Dr. Cobian for treatment of Foraminal Stenosis with left LE Symptoms Physician: Jenaro Sorto Total Fluoroscopy time (seconds): 16 Total sedation minutes: 13 Complications: none Procedure in detail & Post-procedure care: FINDINGS Foraminal Nerve Root Compression secondary to disc disease and facet hypertrophy DESCRIPTION OF PROCEDURE Following review of allergy and review of potential side effects and complications, including, but not necessarily limited to, infection, allergic reaction, local tissue breakdown, stroke, temporary or permanent nerve injury, paralysis, and possible , the patient indicated that the patient understood and agreed to proceed. An informed consent document was signed by the patient, witnessed by a nurse, and placed in the patient's chart. Additionally, other treatment options including medications, modalities, and physical therapy were reviewed with the patient. After review of previous anaesthesic history and IV conscious sedation the patient was deemed safe to proceed with today?s procedure with IV conscious sedation as ASA class II designation. Safety time-out was performed to confirm patient ID, procedure to be performed and site of procedure. IV sedation was accomplished with a combination of 4mg of Versed was administered by the RN after DO order, titrated to patient comfort during the course of the procedure while the patient remained responsive to all verbal commands In the prone position following sterile prep and drape of the lumbar region, the left L3/4 posterior neuroforamen was identified fluoroscopically. The skin was anesthetized via a 25-gauge 1.5-inch needle with 1% lidocaine solution. At this point, a 25-gauge 3.5-inch spinal needle was atraumatically introduced and advanced under fluoroscopic guidance through the posterior left L3/4 neuroforamen to approximately the anterior aspect of the canal. Depth was confirmed on lateral view. Following negative aspiration, injection of approximately 1.5 cc of Isovue 200 under live fluoroscopy in the AP view confirm ed excellent flow along the nerve root, into the epidural space without vascular or intrathecal uptake observed Radiological data, including multiple fluoroscopic views of the lumbosacral spine, reveal a spinal needle at the left L3/4 posterior neuroforamen. Subsequent views show flow of contrast material flowing superiorly and inferiorly along the nerve root confirming epidural flow. Subsequently, a test dose of 1.5cc of 1% lidocaine solution was administered and patient was observed for two minutes for signs or symptoms of complications, including abdominal pain, shortness of breath, bilateral upper or lower extremity weakness, nausea and vomiting, prior to steroid injection. At this point, a total of 2cc or 10mg of dexamethasone and 6mg betamethasone was injected without incident. The patient tolerated the procedure well without signs or symptoms of complications prior to transfer to the recovery area continued monitoring without incident. The patient was then transferred to the recovery area where they were observed for an appropriate time after the injection. The patient reported a VAS score of 7 prior to the procedure and a post-procedure VAS of 0. POST OP INSTRUCTIONS The patient was provided a Pain Log to continue to record their response to the target-specific procedure prior to follow-up visit with their referring physician. Additionally, specific post-injection care instructions and a contact number to our office were provided if concerns arise regarding possible complications associated with the procedure are suspected.
== END 2023-09-12 09:00 | disposition home or self-care (01) ==
PROVIDERS: Family Provider Student in an Organized Health Care Education/Training Program; PCP Family Medicine; Referring Provider Physical Medicine & Rehabilitation; Visit Provider Physical Medicine & Rehabilitation
DX: M48.061 Spinal stenosis, lumbar region without neurogenic claudication (principal); M51.16 Intervertebral disc disorders with radiculopathy, lumbar region; M47.26 Other spondylosis with radiculopathy, lumbar region
CPT/HCPCS: 64483; 99152; J0702; J1100; J2250; J3490

== ENCOUNTER 2024-09-01 07:50 | Outpatient (CLI) | payer OTHER, SELFPAY ==
[2024-09-01] VITALS (7 sets, daily range): BP systolic 144–163; BP diastolic 85–93; PULSE 56–61; RESP 15–17; TEMP 36.4; O2SAT 96–99
--- NOTE | 2024-09-01 07:51 | DI.RAD.S_ITS ---
PROCEDURE: PAIN L/S TRANSFORAMINAL INJECT INDICATIONS: Left L3/4 TFESI COMPARISON: [facility], , PAIN L/S TRANSFORAMINAL INJECT, 09/12/2023, 9:23. FINDINGS: Fluoroscopic spot filming was performed to verify placement of spinal needles at the L3-L4 level(s), as labeled on the films. Appropriate location(s) of the needle tip(s) was confirmed by injection of iodinated contrast. IMPRESSION: Transforaminal L3-L4 epidural injection, please see procedure note for full details. Dictated by: Kulwant Bentley M.D. on 09/01/2024 at 20:30 Approved by: Kulwant Bentley M.D. on 09/01/2024 at 20:31
[2024-09-01] MEDS: MIDAZOLAM 2 MG/2 ML VIAL IV (09:22)
[2024-09-01] MEDS: BUPIVACAINE 0.25% (PF) VIAL 2 ML INJ (09:26)
[2024-09-01] MEDS: DEXAMETHASONE 10 MG/ML VIAL INJ (09:27)
[2024-09-01] MEDS: BETAMETHASONE 30 MG/5 ML MDV 12 MG INJ (09:27)
[2024-09-01] MEDS: iopamidoL 15 ML VIAL 3 ML INJ (09:27)
--- NOTE | 2024-09-01 09:36 | PM.PROC.IR.1 ---
Date/Time/Diagnoses Date of procedure: 09/09/24 Time of procedure: 09:36 Pre-procedure diagnosis: 1. FORAMINAL STENOSIS WITH LE SYMPTOMS Post-procedure diagnosis: same Procedure Notes Procedure: 1. FLUOROSCOPICALLY GUIDED CONTRAST CONTROLLED TRANSFORAMINAL EPIDURAL STEROID INJECTION - LEFT L3/4 TFESI Indications: Adrian is referred by Dr. Cobian for treatment of Foraminal Stenosis with left LE Symptoms Physician: Jenaro Sorto Total Fluoroscopy time (seconds): 9 Total sedation minutes: 11 Complications: none Procedure in detail & Post-procedure care: FINDINGS Foraminal Nerve Root Compression secondary to disc disease and facet hypertrophy DESCRIPTION OF PROCEDURE Following review of allergy and review of potential side effects and complications, including, but not necessarily limited to, infection, allergic reaction, local tissue breakdown, stroke, temporary or permanent nerve injury, paralysis, and possible , the patient indicated that the patient understood and agreed to proceed. An informed consent document was signed by the patient, witnessed by a nurse, and placed in the patient's chart. Additionally, other treatment options including medications, modalities, and physical therapy were reviewed with the patient. After review of previous anaesthesic history and IV conscious sedation the patient was deemed safe to proceed with today?s procedure with IV conscious sedation as ASA class II designation. Safety time-out was performed to confirm patient ID, procedure to be performed and site of procedure. IV sedation was accomplished with a combination of 2mg of Versed was administered by the RN after DO order, titrated to patient comfort during the course of the procedure while the patient remained responsive to all verbal commands In the prone position following sterile prep and drape of the lumbar region, the left L3/4 posterior neuroforamen was identified fluoroscopically. The skin was anesthetized via a 25-gauge 1.5-inch needle with 1% lidocaine solution. At this point, a 22-gauge 5-inch spinal needle was atraumatically introduced and advanced under fluoroscopic guidance through the posterior left L3/4 neuroforamen to approximately the anterior aspect of the canal. Depth was confirmed on lateral view. Following negative aspiration, injection of approximately 1.5 cc of Isovue 200 under live fluoroscopy in the AP view confirmed excellent flow along the nerve root, into the epidural space without vascular or intrathecal uptake observed Radiological data, including multiple fluoroscopic views of the lumbosacral spine, reveal a spinal needle at the left L3/4 posterior neuroforamen. Subsequent views show flow of contrast material flowing superiorly and inferiorly along the nerve root confirming epidural flow. Subsequently, a test dose of 1.5cc of 1% lidocaine solution was administered and patient was observed for two minutes for signs or symptoms of complications, including abdominal pain, shortness of breath, bilateral upper or lower extremity weakness, nausea and vomiting, prior to steroid injection. At this point, a total of 3cc or 10mg of dexamethasone and 12mg betamethasone was injected without incident. The patient tolerated the procedure well without signs or symptoms of complications prior to transfer to the recovery area continued monitoring without incident. The patient was then transferred to the recovery area where they were observed for an appropriate time after the injection. The patient reported a VAS score of 7 prior to the procedure and a post-procedure VAS of 0. POST OP INSTRUCTIONS The patient was provided a Pain Log to continue to record their response to the target-specific procedure prior to follow-up visit with their referring physician. Additionally, specific post-injection care instructions and a contact number to our office were provided if concerns arise regarding possible complications associated with the procedure are suspected.
== END 2024-09-01 09:55 | disposition home or self-care (01) ==
PROVIDERS: Family Provider Student in an Organized Health Care Education/Training Program; PCP Family Medicine; Referring Provider Physical Medicine & Rehabilitation; Visit Provider Physical Medicine & Rehabilitation
DX: M48.061 Spinal stenosis, lumbar region without neurogenic claudication (principal); M51.16 Intervertebral disc disorders with radiculopathy, lumbar region; M47.26 Other spondylosis with radiculopathy, lumbar region
CPT/HCPCS: 64483; 99152; J0702; J1100; J2250; J3490

== ENCOUNTER → 2025-01-27 16:16 | Outpatient (CLI) | payer OTHER, SELFPAY ==
--- NOTE | 2025-01-27 16:20 | DI.RAD.S_ITS ---
PROCEDURE: XR HIP W PEL IF DONE LT 2V INDICATIONS: HIP PAIN TECHNIQUE: AP pelvis with lateral view(s) of the left hip(s). COMPARISON: None. FINDINGS: Bones: No fractures or dislocations. Pelvic ring appears intact. No suspicious bony lesions. 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 Lower lumbar spondylosis. Soft tissues: The visualized bowel gas pattern is normal. No suspicious soft tissue calcifications. IMPRESSION: No acute osseous abnormalities. 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 Lower lumbar spondylosis. Dictated by: Oj Gonzales M.D. on 01/29/2025 at 0:55 Approved by: Oj Gonzales M.D. on 01/29/2025 at 0:55
== END ==
PROVIDERS: Family Provider Student in an Organized Health Care Education/Training Program; PCP Family Medicine; Referring Provider Family Medicine; Visit Provider Family Medicine
DX: M25.551 Pain in right hip (principal); M47.816 Spondylosis without myelopathy or radiculopathy, lumbar region
CPT/HCPCS: 73502